=== PATIENT | male | born 1960 | race Caucasian/White ===

== ENCOUNTER 2019-11-18 04:29 | Outpatient (CLI) | payer BC, SELFPAY ==
[2019-11-18 18:08] LABS: SARS-CoV-2 RNA PCR Negative
== END 2019-11-18 04:30 | disposition home or self-care (01) ==
LOC: ANHCOVIDDT 04:29
PROVIDERS: PCP Family Medicine; Visit Provider Internal Medicine Gastroenterology
DX: Z01.812 Encounter for preprocedural laboratory examination (principal); Z11.59 Encounter for screening for other viral diseases
CPT/HCPCS: 87635; C9803; U0003

== ENCOUNTER 2019-11-21 00:13 | Day surgery (SDC) | payer BC, SELFPAY ==
[2019-11-15 13:22] VITALS: BMI 27.4
[2019-11-21 07:28] VITALS: BP 102/64; PULSE 58; RESP 15; TEMP 36.4; O2SAT 97
--- NOTE | 2019-11-21 07:36 | WPDANESEPPF ---
Anes - Initial Pre Proc Eval Procedure: Operation Date: 11/21/19 08:30 Proposed Procedures p Screening Colonoscopy - Bulmaro Amanda MD Date/Time: 11/21/19 07:36 Surgeon: Bulmaro Amanda MD Pre Op Diagnosis: neoplasm screening family hx colon polyps Patient Data Age: 59 Gender: M Height: 5 ft 9 in Weight: 83.1 kg Last Vital Signs Temp 36.4 C 11/21/19 07:28 Pulse 58 L 11/21/19 07:28 Resp 15 11/21/19 07:28 BP 102/64 11/21/19 07:28 Pulse Ox 97 11/21/19 07:28 Allergies Allergy/AdvReac Type Severity Reaction Status Date / Time Penicillins Allergy Unknown rash Verified 11/21/19 07:24 Home Medications Medication Instructions Recorded Confirmed Type adalimumab 40 mg/0.8 mL See Rx Instructions SUB-Q .COMPLEX 04/14/19 11/21/19 History subcutaneous syringe kit gabapentin 100 mg capsule See Rx Instructions .ROUTE .COMPLEX 04/14/19 11/21/19 History levothyroxine 25 mcg tablet 25 mcg PO DAILY #90 tablet 04/14/19 11/21/19 Rx pantoprazole 40 mg tablet,delayed 40 mg PO QAM #90 tablet 04/14/19 11/21/19 Rx release pravastatin 20 mg tablet 20 mg PO DAILY #90 tablet 04/14/19 11/21/19 Rx tramadol 50 mg tablet 50 mg PO Q6H PRN #60 tablet 07/03/19 11/21/19 Rx meloxicam 7.5 mg tablet 7.5 mg PO BID tablet 09/22/19 11/21/19 History triamcinolone acetonide 0.1 % 1 applic TOPICAL BID #30 gm 09/22/19 11/15/19 Rx topical cream tamsulosin 0.4 mg PO DAILY 11/21/19 11/21/19 History Patient hx anesthesia problems: none Family hx anesthesia problems: none PMFSH Past Medical History Medical History Adult hypothyroidism Back injury (~04/25/19) Other and unspecified hyperlipidemia Psoriatic arthritis Family History Family History Mother Dementia Social History Social History Smoking status: Current some day smoker Second hand tobacco smoke exposure: Yes Alcohol intake: current Drinks per week: 10 Anes - Eval Final PreProcedure Day of Procedure 11/21/19 07:36 Patient weight: overweight Heart: regular rate and rhythm Lungs: decreased breath sounds Airway: Mallampati scale class II Neurological: alert and oriented Last oral intake: >/= 8 hours ASA classification: III Emergent: no Anesthetic plan: proceed Anesthesia type and monitoring: general GIVS and standard monitoring Informed Consent: The patient's anesthetic plan and its attendant risks and benefits were discussed with the patient/family/POA. Questions were solicited and answers provided to the satisfaction of the patient/family/POA.
[2019-11-21] MEDS: LACTATED RINGERS 1,000 ML 150 ML IV CONT (07:39)
--- NOTE | 2019-11-21 07:48 | WPDGICN ---
Assessment and Plan Assessment and plan (1) Family history of colonic polyps: Code(s): Z83.71 - Family history of colonic polyps Status: Acute Assessment and Plan: Patient's sister has had colon polyps. Plan is for patient to have surveillance colonoscopy now and typically at 5 year intervals in the future. GI Consult Note Consult date/time: 11/21/19 07:48 HPI: Jesús Blackburn is a 59 year old male seen in evaluation at the request of Dr Danii Koo. Patient presents for colonoscopy. Family history is significant that her sister has had colon polyps. Patient states that his own weight appetite bowel movements are normal. He denies any blood in his stools. He does notice some regularity of bowel habits. In associated abdominal cramping. He denies any weight loss. Review of Systems Review of Systems: All systems reviewed & are unremarkable except as noted in HPI and below PMFSH Past Medical History Medical History Adult hypothyroidism Back injury (~04/25/19) Other and unspecified hyperlipidemia Psoriatic arthritis Family History Family History Mother Dementia Social History Social History Smoking status: Current some day smoker Second hand tobacco smoke exposure: Yes Alcohol intake: current Drinks per week: 10 Meds Home Medications and Allergies Home Medications Medication Instructions Recorded Confirmed Type adalimumab 40 mg/0.8 mL See Rx Instructions SUB-Q .COMPLEX 04/14/19 11/21/19 History subcutaneous syringe kit gabapentin 100 mg capsule See Rx Instructions .ROUTE .COMPLEX 04/14/19 11/21/19 History levothyroxine 25 mcg tablet 25 mcg PO DAILY #90 tablet 04/14/19 11/21/19 Rx pantoprazole 40 mg tablet,delayed 40 mg PO QAM #90 tablet 04/14/19 11/21/19 Rx release pravastatin 20 mg tablet 20 mg PO DAILY #90 tablet 04/14/19 11/21/19 Rx tramadol 50 mg tablet 50 mg PO Q6H PRN #60 tablet 07/03/19 11/21/19 Rx meloxicam 7.5 mg tablet 7.5 mg PO BID tablet 09/22/19 11/21/19 History triamcinolone acetonide 0.1 % 1 applic TOPICAL BID #30 gm 09/22/19 11/15/19 Rx topical cream tamsulosin 0.4 mg PO DAILY 11/21/19 11/21/19 History Allergies Allergy/AdvReac Type Severity Reaction Status Date / Time Penicillins Allergy Unknown rash Verified 11/21/19 07:24 Vital Signs Vital Signs - 24 hr 11/21/19 07:28 Temperature 36.4 C Pulse Rate 58 L Respiratory Rate 15 Blood Pressure 102/64 Pulse Oximetry 97 Exam Narrative: Exam Narrative: Physical exam reveals patient to be alert. Vital signs stable. HEENT exam unremarkable. Lungs are clear to auscultation and percussion. Heart is without murmur or extra sounds. Abdominal exam bowel sounds are present soft nontender no organomegaly. Digital external rectal exam normal.
[2019-11-21 08:43] VITALS: BP 100/64; PULSE 54; RESP 20; O2SAT 98
[2019-11-21 08:53] VITALS: BP 105/68; PULSE 51; RESP 18; O2SAT 95
[2019-11-21 09:03] VITALS: BP 109/69; PULSE 50; RESP 14; O2SAT 96
== END 2019-11-21 09:13 | disposition home or self-care (01) ==
PROVIDERS: PCP Family Medicine; Visit Provider Internal Medicine Gastroenterology
PROC: 0DJD8ZZ Inspection of Lower Intestinal Tract, Via Natural or Artificial Opening Endoscopic (ICD-10-PCS; CPT 45378; principal; 2019-11-21 08:30)
DX: Z12.11 Encounter for screening for malignant neoplasm of colon (principal); K63.5 Polyp of colon; Z83.71 Family history of colonic polyps; E03.9 Hypothyroidism, unspecified; L40.50 Arthropathic psoriasis, unspecified; F17.200 Nicotine dependence, unspecified, uncomplicated
CPT/HCPCS: 45385; 88305; J2704; J7120

== ENCOUNTER 2020-04-05 08:48 | Outpatient (CLI) | payer BC, SELFPAY ==
--- NOTE | 2020-04-05 08:50 | ECG_ITS ---
Measurements Intervals [place] Rate: 60 P: 52 SD: 165 QRS: 9 QRSD: 87 T: 25 QT: 376 QTc: 376 Interpretive Statements SINUS RHYTHM NORMAL ECG Electronically Signed On 04-05-2020 9:55:14 INSTALLATION AND REPAIR TECHNICIAN by Jeff Zuniga D.O.
== END 2020-04-05 08:49 | disposition home or self-care (01) ==
LOC: ANHCARD 08:50
PROVIDERS: PCP Family Medicine; Visit Provider Nurse Practitioner
DX: Z01.810 Encounter for preprocedural cardiovascular examination (principal)
CPT/HCPCS: 93005

== ENCOUNTER 2021-08-20 10:06 | Outpatient (CLI) | payer OTHER, BC, SELFPAY ==
--- NOTE | 2021-08-20 | ECG_ITS ---
Measurements Intervals [place] Rate: 60 P: 42 CT: 149 QRS: 9 QRSD: 110 T: 18 QT: 373 QTc: 373 Interpretive Statements SINUS RHYTHM NORMAL ECG COMPARED TO ECG 04/05/2020 09:19:00 NO SIGNIFICANT CHANGES Electronically Signed On 08-20-2021 13:41:40 CDT by Driss You M.D.
[2021-08-20 10:39] LABS: Hematocrit 43.7 % (42.0-52.0); Hemoglobin 14.3 g/dL (14.0-18.0); Immature Platelet Fraction Pct 16.5 % (0.9-11.2); Mean Corpuscular HGB Conc 32.7 g/dl (32-36); Mean Corpuscular Volume 88.6 fl (80-100); Mean Platelet Volume 11.6 fl (7.4-10.4); Platelet Count Result 125 k/mm3 (150-375); Red Blood Count 4.93 M/mm3 (4.6-6.20); Red Cell Distribution Width 15.9 % (11.5-14.5); White Blood Count 11.9 K/mm3 (4.5-10.0)
[2021-08-20 10:56] LABS: Alanine Aminotransferase 22 U/L (4-50); Albumin Level 4.6 g/dL (3.5-5.1); Alkaline Phosphatase 69 U/L (38-126); Anion Gap 8 mmol/L (8-16); Aspartate Amino Transferase 30 U/L (17-59); Bilirubin,Total 1.6 mg/dL (0.2-1.3); Blood Urea Nitrogen 20 mg/dL (9-20); Calcium 9.1 mg/dL (8.4-10.2); Carbon Dioxide 27 mmol/L (22-30); Chloride 104 mmol/L (98-107); Estimated Glomerular Filt Rate > 60; Glucose 113 mg/dL (65-110); Potassium 4.4 mmol/L (3.4-5.0); Sodium 139 mmol/L (137-145)
== END 2021-08-20 10:07 | disposition home or self-care (01) ==
PROVIDERS: PCP Family Medicine
DX: G56.03 Carpal tunnel syndrome, bilateral upper limbs (principal)
CPT/HCPCS: 36415; 80053; 85027; 85055; 93005

== ENCOUNTER 2022-04-23 08:14 | Outpatient (CLI) | payer MEDICARE, SELFPAY ==
--- NOTE | ~2022-04-23 | US_ITS ---
EXAMINATION: US aorta [facility] DATE: 04/23/2022 14:37 RECEPTIONIST TELEPHONE OPERATOR INDICATION: History of nicotine dependence TECHNIQUE: Grayscale, color Doppler, and pulsed Doppler images of the aorta and common iliac arteries were obtained. COMPARISON: None. FINDINGS: The proximal aorta measures 3 cm greatest sagittal dimension. The mid aorta measures 2.5 cm greatest sagittal dimension. The distal aorta measures 2.6 cm greatest sagittal dimension. The right common in ternal iliac artery measures 1.4 cm. The left common iliac artery measures 1.5 cm. IMPRESSION: 1. Mild aneurysmal dilation of the proximal abdominal aorta measuring 3 cm. Reviewed, dictated and finalized at location A. PTIONIST TELEPHONE OPERATOR
== END 2022-04-23 08:15 | disposition home or self-care (01) ==
PROVIDERS: PCP Family Medicine; Visit Provider Nurse Practitioner
DX: Z87.891 Personal history of nicotine dependence (principal)
CPT/HCPCS: 76706

== ENCOUNTER → 2023-02-08 13:51 | Outpatient (CLI) | payer MEDICARE, SELFPAY ==
--- NOTE | ~2023-02-08 | MR_ITS ---
EXAMINATION: MR shoulder LT wo con DATE: 02/08/2023 14:39 INDICATION: Left shoulder pain TECHNIQUE: Magnetic resonance imaging (MRI) of the left shoulder was performed without intravenous co ntrast. Sequences included axial PD-weighted FS FSE, coronal oblique PD-weighted FS FSE, coronal obli que T2-weighted FS FSE, sagittal PD-weighted FS FSE, and sagittal T1-weighted SE. COMPARISON: None. FINDINGS: Coracoacromial arch: The acromion undersurface is curved in morphology (type II). Small subacromial spur at the acromial i nsertion of the normal coracoacromial ligament. Moderate acromioclavicular osteoarthritis but without inferiorly directed osteophytes. Rotator cuff: Mild supraspinatus and infraspinatus tendinopathy without tear. The teres minor tendon is normal. Mil d subscapularis tendinopathy without tear. Normal rotator cuff muscle bulk and signal. Biceps tendon, glenoid labrum and glenohumeral cartilage: Moderate tendinopathy and longitudinal split tearing of the long head of the biceps tendon centered a t the junction of the intra-articular and extra articular portions of the tendon. There is a tear of the 11:00-12:00 position of the superior glenoid labrum. Additional tear at the 9:30-6:00 position of the posterior inferior glenoid labrum. Mild glenohumeral osteoarthritis with posterior inferior pred ominant nonuniform joint space narrowing with mild partial-thickness cartilage loss. Fluid: Physiologic amount of fluid in the glenohumeral joint and biceps tendon sheath. No loose osteochondr al bodies. No abnormal fluid in the subacromial/subdeltoid bursa to suggest bursitis. Bones: Bone alignment is normal. No fracture or pathologic marrow replacing process. Mild hypertrophic and c ystic change along the superior facet of the greater tuberosity and lateral margin of the lesser tube rosity likely related to chronic rotator cuff disease. IMPRESSION: 1. Mild left glenohumeral osteoarthritis with tear at the superior and posterior inferior glenoid lab rum. 2. Mild subscapularis, supraspinatus and infraspinatus tendinopathy without tear. 3. Moderate tendinopathy and partial split tear at the junction of the internal extra articular porti ons of the long head biceps tendon. 4. Moderate acromioclavicular osteoarthritis. Reviewed, dictated and finalized at location A. IMPRESSION: 1. Mild left glenohumeral osteoarthritis with tear at the superior and posterio r inferior glenoid labrum. 2. Mild subscapularis, supraspinatus and infraspinatus tendinopathy without tea r. 3. Moderate tendinopathy and partial split tear at the junction of the internal extra articular portions of the long head biceps tendon. 4. Moderate acromioclavicular osteoarthritis.
== END ==
PROVIDERS: PCP Specialist; Visit Provider Family Medicine
DX: M19.012 Primary osteoarthritis, left shoulder (principal)
CPT/HCPCS: 73221

== ENCOUNTER 2023-04-03 08:19 | Outpatient (CLI) | payer MEDICARE, SELFPAY ==
[2023-04-03 08:47] LABS: Immature Platelet Fraction Pct 17.2 % (0.9-11.2); Mean Platelet Volume 12.3 fl (7.4-10.4); Platelet Count Result 86 k/mm3 (150-375)
== END 2023-04-03 08:20 | disposition home or self-care (01) ==
PROVIDERS: PCP Specialist; Referring Provider Anesthesiology; Visit Provider Otolaryngology
DX: Z01.818 Encounter for other preprocedural examination (principal); D69.6 Thrombocytopenia, unspecified; J34.2 Deviated nasal septum
CPT/HCPCS: 36415; 85049; 85055; 86850; 86900; 86901

== ENCOUNTER 2023-04-06 00:25 | Day surgery (SDC) | payer MEDICARE, SELFPAY ==
--- NOTE | 2023-04-02 10:28 | PC.NURSE ---
Report to the Outpatient Waiting Room, entrance under the green pavilion located off [facility], at time 1230 on date 04/06/23. Planned Procedure Time: 1230. Time changes happen often and if your time is changed the preop area will call you the afternoon before. - You and your visitor will be asked to self-screen and do not enter if you have any COVID symptoms. - A mask is optional within the hospital at this time. Patients may have clear liquids (water, carbonated beverages, clear teas, apple juice) until 3 hours prior to surgery with a maximum of 20 ounces. 1130 - No food from midnight until time of surgery - Infants may have breast milk until 4 hours before surgery, formula 6 hours prior to surgery. - Children will be allowed to drink immediately following surgery. If applicable, please bring a bottle or sippy cup to assist with drinking. Juice, water, soda, and popsicles are readily available. For infants on formula, please bring formula the day of surgery. Pacifiers are allowed. Take the following medications with a SIP of water the morning of surgery: tramadol, gabapentin DO NOT STOP ANY OF YOUR OTHER PRESCRIPTION MEDICATIONS PRIOR TO SURGERY ?EXCEPT THE FOLLOWING Medications to discontinue per physician vitamins & supplements, pantoprazole, pravastatin, tamsulosin, meloxicam Date to take last dose 04/03/23- vitamins & supplements, 04/05/23- pantoprazole, pravastatin, tamsulosin ASK DR. REYEZ ABOUT STOPPING MELOXICAM Please no make-up, nail luxembourger, hairspray, perfume, deodorant, or body powder the day of surgery. No jewelry (including any body piercings) or valuables the day of surgery, leave them at home. Please take a shower or bath the night before, or the morning of, surgery with an antibacterial soap. Wear comfortable, loose fitting clothing. Children are encouraged to wear pajamas. - Jewelry must be removed prior to entering the operating room. Rings and piercings that are not removed may be cut off. - The hospital will not accept responsibility for valuables. - Please leave all valuables, including medications, at home the day of surgery. If you are going home after surgery, a licensed rear load truck driver must drive you home. - NO public transportation without another adult if you receive anesthesia. - We recommend that an adult stay with you for 24 hours following discharge. - We also recommend that you do not drive, make important decision, drink alcoholic beverages, or take any drugs that were not prescribed by your health care provider for at least 24 hours after your discharge time. For Pediatric surgeries, we recommend two adults accompany the child home. Follow any additional instructions given to you from your surgeon. If you or anyone in your household have experienced Covid symptoms in the past week, please notify your surgeon or the nurse liaison at the phone number below for possible testing. Telephone instructions given to PATIENT- Jesús Blackburn and asked if any additional questions and then verbalized understanding. Patient advised to call surgeon office or pre surgery nurse liaison [phone] if any additional questions.
[2023-04-02 10:42] VITALS: BMI 29.5
--- NOTE | 2023-04-02 10:52 | PC.NURSE ---
Spoke to patient to notify him anesthesiologist would like for him to have blood drawn prior to surgery to check platelet count. Patient stated he would come in either today or tomorrow to have blood drawn completed.
--- NOTE | 2023-04-05 16:54 | PM.IMHP ---
H&P: HPI History of Present Illness Date/Time: 04/05/23 16:54 Chief Complaint: Thrombocytopenia septal deviation turbinate hypertrophy Narrative: planned procedure Review of Systems Review of Systems: All systems reviewed & are unremarkable except as noted in HPI and below [facility] Past Medical History Medical History AAA (abdominal aortic aneurysm) 3cm - u/s 04/23/22 Adult hypothyroidism Benign prostatic hyperplasia Bilateral tinnitus Deviated septum Family history of colonic polyps GERD without esophagitis Herniated disc, cervical 2012 Hx of Lyme disease (~08/2020) Other and unspecified hyperlipidemia Pain of back and right lower extremity Peyronie's disease Follows with urology - Dr Pastrana Psoriatic arthritis Follows with Rheumatology at [facility] Septic joint of right knee joint 06/2018 Torn ligament R hip 2012 Vitamin D deficiency Surgical History Surgical History H/O discectomy (~05/2014) C3-4 H/O left wrist surgery H/O spinal fusion (~2004) C3-4, C4-5 History of arthroscopy of knee Right knee x3 History of arthroscopy of right shoulder x4 S/p bilateral carpal tunnel release Family History Family History Mother Dementia Social History Social History Social History: , retired tractor trailer truck driver. Smoking packs per day: 0.5 Smoking cigarettes per day: 10.0 Years smoked: 20 Smoking pack-years: 10.00 Smoking status: Former smoker Tobacco type: cigarettes Second hand tobacco smoke exposure: Yes Alcohol intake: current Drinks per week: 45 Alcohol use details: drinks beer Substance use: never Lack of Transportation: No Lack of Food: Never True Current Housing: I Have Housing Concerned About Future Housing: No Difficulty Paying Gas/Electric Bills: No Difficulty Paying for Meds: No Currently Unemployed: No Education: Bachelor's Degree Difficulty w/ Childcare or Family Care: No Occupation/Education: occupation Additional occupation/education comments: retired tractor trailer truck driver Gender identity (if verbalized by the patient): Male Meds Home Medications and Allergies Home Medications Medication Instructions Recorded Confirmed Type cholecalciferol (vitamin D3) 50 500 mcg PO WEEKLY 04/29/20 04/02/23 History mcg (2,000 unit) capsule pravastatin 20 mg tablet 20 mg PO DAILY #90 tabs 12/17/22 04/02/23 Rx golimumab 12.5 mg/mL intravenous 12.5 mg IV .every 2 months 01/19/23 04/02/23 History solution (Simponi ARIA) pantoprazole 40 mg tablet,delayed 40 mg PO DAILY #90 tabs 03/01/23 04/02/23 Rx release meloxicam 7.5 mg tablet 7.5 mg PO BID #180 tabs 03/23/23 04/02/23 Rx tramadol 50 mg tablet 50 mg PO BID PRN pain #60 tabs 03/29/23 04/02/23 Rx gabapentin 300 mg capsule 300 mg PO TID 04/02/23 04/02/23 History (Neurontin) tamsulosin 0.4 mg capsule 0.4 mg PO HS 04/02/23 04/02/23 History tramadol 50 mg tablet 50 mg PO BID PRN Pain 04/02/23 04/02/23 History [id number]-kcex-hayws-oreg-capryl 2,000 mg PO DAILY 04/02/23 04/02/23 History Allergies Allergy/AdvReac Type Severity Reaction Status Date / Time Penicillins Allergy Unknown rash Verified 04/02/23 10:11 methotrexate AdvReac Severe Other Verified 04/02/23 10:11 Exam Narrative: septal deviation turbinate hypertrophy Assessment and Plan Assessment and plan (1) Hypertrophy of both inferior nasal turbinates: Code(s): J34.3 - Hypertrophy of nasal turbinates Status: Acute Assessment and Plan: plan OR endoscopic assisted septoplasty possible turbinate reduction, absolutely turbinate outfracture. Risks were discussed including bleeding patient has thrombocytopenia may need to give platelets prior to surgery. Other risks septal
--- NOTE | 2023-04-06 07:38 | WPDHPUPDATE1 ---
History and Physical Update Update Date/Time: 04/06/23 07:38 History and Physical has been reviewed, including an updated exam of the patient. There are NO changes in the patient's condition. Risks, benefits, and alternatives have been discussed and questions answered. Patient agrees to proceed with procedure.
[2023-04-06 12:54] VITALS: BP 102/69; PULSE 66; RESP 18; TEMP 36.4; O2SAT 97
[2023-04-06] MEDS: LACTATED RINGERS 1,000 ML 30 ML IV CONT (13:20)
[2023-04-06] MEDS: ACETAMINOPHEN 500 MG TABLET 1000 MG PO (13:20)
--- NOTE | 2023-04-06 15:34 | SUR.PREOP ---
1530-confirmed delay w/OR room staff-states ~1 additional hour. Pt updated and call placed to w/update.
--- NOTE | 2023-04-06 15:52 | SUR.PREOP ---
1534 DR MORRIS IN TO SPEAK WITH PT ABOUT RESCHEDULING HIS SURGERY. SPOKE WITH PTS
--- NOTE | 2023-04-06 16:13 | SUR.PREOP ---
1400 PT RESTING, WARM BLANKET GIVEN, DENIED NEEDS
== END 2023-04-06 16:12 | disposition home or self-care (01) ==
PROVIDERS: PCP Family Medicine; Visit Provider Otolaryngology
PROC: (CPT 30520; principal; 2023-04-06 14:30)
DX: J32.9 Chronic sinusitis, unspecified (principal); J34.2 Deviated nasal septum; Z53.9 Procedure and treatment not carried out, unspecified reason
CPT/HCPCS: 36415; 85049; 85055; 86850; 86900; 86901; 99213; A9270; G0463; J7120

== ENCOUNTER 2023-10-28 09:52 | Outpatient (CLI) | payer MEDICARE, SELFPAY ==
[2023-10-28 19:56] LABS: Hematocrit 39.3 % (42.0-52.0); Mean Corpuscular HGB Conc 30.5 g/dl (32-36); Mean Corpuscular Hemoglobin 26.8 pg (26-34); Mean Corpuscular Volume 87.9 fl (80-100); Platelet Count Result 175 k/mm3 (150-375); Red Blood Count 4.47 M/mm3 (4.6-6.20); Red Cell Distribution Width 16.5 % (11.5-14.5)
[2023-10-28 23:47] LABS: Alanine Aminotransferase 15 U/L (6-50); Albumin Level 4.2 g/dL (3.5-5.1); Alkaline Phosphatase 101 U/L (38-126); Anion Gap 5 mmol/L (4-12); Aspartate Amino Transferase 30 U/L (17-59); Bilirubin,Total 0.8 mg/dL (0.2-1.3); Blood Urea Nitrogen 22 mg/dL (9-20); Calcium 9.5 mg/dL (8.4-10.2); Carbon Dioxide 30 mmol/L (22-30); Chloride 104 mmol/L (98-107); Cholesterol 120 mg/dL (0-200); Estimated Glomerular Filt Rate > 60; Glucose 111 mg/dL (65-110); HDL Direct 28 mg/dL; Potassium 4.3 mmol/L (3.4-5.0); Sodium 139 mmol/L (137-145); Triglycerides 70 mg/dL (<150)
[2023-10-28 23:58] LABS: LDL Cholesterol Direct 76 mg/dL
[2023-10-29 00:39] LABS: Prostate Specific Antigen 0.4 ng/mL (< OR = 4.0)
[2023-10-29 10:52] LABS: Hemoglobin A1C 5.3 % (<5.7)
[2023-10-29 13:25] LABS: Vitamin D 25 Hydroxy 54.3 ng/mL
== END 2023-10-28 09:53 | disposition home or self-care (01) ==
LOC: ANHGOSHLAB 09:53
PROVIDERS: PCP Family Medicine; Visit Provider Nurse Practitioner
DX: E78.5 Hyperlipidemia, unspecified (principal); Z12.5 Encounter for screening for malignant neoplasm of prostate; E55.9 Vitamin D deficiency, unspecified; L40.50 Arthropathic psoriasis, unspecified
CPT/HCPCS: 36415; 80053; 80061; 82306; 83036; 84153; 84443; 85027; G0103

== ENCOUNTER 2023-11-30 12:49 | Outpatient (CLI) | payer MEDICARE, SELFPAY ==
--- NOTE | ~2023-11-30 | US_ITS ---
EXAMINATION: US aorta DATE: 11/30/2023 13:21 INDICATION: Abdominal aortic aneurysm without rupture TECHNIQUE: Grayscale, color Doppler, and pulsed Doppler images of the aorta and common iliac arteries were obtained. COMPARISON: None. FINDINGS: The proximal aorta measures 2.6. The mid aorta measures 2.6 cm. The distal aorta measures 1.9 cm. The right common iliac artery measures 1.4 cm. The left common iliac artery measures 1.2 cm. IMPRESSION: 1. Normal caliber abdominal aorta. Reviewed, dictated and finalized at location A.
== END 2023-11-30 12:50 | disposition home or self-care (01) ==
LOC: ANHIMG 12:51
PROVIDERS: PCP Family Medicine; Visit Provider Nurse Practitioner
DX: I71.40 Abdominal aortic aneurysm, without rupture, unspecified (principal)
CPT/HCPCS: 76775

== ENCOUNTER 2024-11-01 11:23 | Outpatient (CLI) | payer OTHER, SELFPAY ==
--- NOTE | 2024-11-01 12:08 | ECG_ITS ---
Test Date: 2024-11-01 12:20:[address] [place] [address] Rate: 63 P: 14 [place]: 172 QRS: -1 QRSD: 91 T: 11 QT: 382 QTc: 392 Interpretive Statements SINUS RHYTHM BASELINE ARTIFACT- I, II, III NORMAL ECG No previous ECG available for comparison Electronically Signed On 11-01-2024 12:50:15 CDT by Jeff Zuniga D.O.
[2024-11-01 12:12] LABS: Add Urine Microscopic? NO; Appearance Urine Clear (Clear); Bilirubin Urine Negative (Negative); Blood Urine Negative (Negative); Color Urine Yellow (Yellow); Glucose Urine UA Negative (Negative); Ketones Urine Negative (Negative); Leukocyte Esterase Ur Negative LEU/UL (Negative); Nitrate Urine Negative (Negative); Protein Urine Negative (Negative); Specific Grav Ur 1.018 (1.001-1.035); pH Urine 5.5 (5.0-9.0)
[2024-11-01 12:13] LABS: Basophils Percent Auto 0.3 % (0.2-1.2); Eosinophils Absolute Auto 0.7 K/mm3 (0-0.3); Eosinophils Percent Auto 10.7 % (0-4.4); Hematocrit 43.4 % (42.0-52.0); Hemoglobin 13.9 g/dL (14.0-18.0); Immature Granulocyte Absolute 0.04 K/mm3 (0.00-0.031); Immature Granulocyte Percent A 0.6 % (0-0.5); Immature Platelet Fraction Pct 15.9 % (0.9-11.2); Lymphocytes Absolute Auto 1.28 K/mm3 (0.9-3.2); Lymphocytes Percent Auto 18.6 % (18.3-44.2); Mean Corpuscular Hemoglobin 29.2 pg (26-34); Mean Corpuscular Volume 91.2 fl (80-100); Mean Platelet Volume 12.2 fl (7.4-10.4); Monocytes Absolute Auto 0.4 K/mm3 (0.1-0.6); Monocytes Percent Auto 5.4 % (2.6-8.5); Neutrophils Absolute Auto 4.4 K/mm3 (1.3-6.7); Neutrophils Percent Auto 64.4 % (45.5-73.1); Platelet Count Result 90 k/mm3 (150-375); Red Blood Count 4.76 M/mm3 (4.6-6.20); Red Cell Distribution Width 15.7 % (11.5-14.5); White Blood Count 6.9 K/mm3 (4.5-10.0)
[2024-11-01 12:29] LABS: INR 1.1; Partial Thromboplastin Time 25.1 Seconds (22.3-36.8)
[2024-11-01 13:24] LABS: Erythrocyte Sedimentation Rate 4 mm/hr (0-20)
[2024-11-01 13:30] LABS: HIV 1/2 Ab P24 Ag Result Negative (Negative)
[2024-11-01 13:37] LABS: Vitamin D 25 Hydroxy 58.1 ng/mL
--- OUTSIDE RECORDS SUMMARY | 2024-11-01 13:50 | XMS_ITS | Referral Summary ---
Author Organization [facility] Address [address] [place] [address] Care Team Providers Care Dam Worker Name Role Phone Tali Padgett MD Primary Care Provider Allergies Active Allergy Reactions Criticality Noted Date Comments Methotrexate Other (See comments) Reaction: abnormal liver enzymes, Penicillins Rash Reaction: rash, , Medications tamsulosin (FLOMAX) 0.4 mg extended release capsuleIndicatio ns:benign prostatic hyperplasia with lower urinary tract sx Take 1 capsule (0.4 mg total) by mouth nightly Active gabapentin (NEURONTIN) 300 mg capsuleIndicatio ns:Neuropathic Pain Take 1 capsule (300 mg total) by mouth 3 (three) times a day 1 Active calcium carbonate-mag hydroxid 1,000-200 mg tablet,chewableI ndications:Heart burn,gastroesoph ageal reflux disease Take 1 tablet/capsule by mouth as needed Active clobetasoL (CLOBEX) 0.05 % shampooIndicatio ns:Scalp Psoriasis Apply 1 Application topically as needed [address] (PROTONIX) 20 mg EC tabletIndication s:Treatment of Non-Bleeding Gastric Disorder Take 1 tablet (20 mg total) by mouth every morning Active pravastatin (PRAVACHOL) 20 mg tabletIndication s:hyperlipidemia Take 1 tablet (20 mg total) by mouth every morning 3 Active rOPINIRole (REQUIP) 1 mg tabletIndication s:Restless Legs Syndrome Take 1 tablet (1 mg total) by mouth 2 (two) times a day 4 Active cholecalciferol, vitamin D3, (VITAMIN D3 ORAL)Indications :supplement Take 1 tablet/capsule by mouth every morning Active CALCIUM ORALIndications: supplement Take 1 tablet/capsule by mouth every morning Active hydrocortisone 2.5 % creamIndications :Skin Inflammation,ski n rash Apply topically 2 (two) times a day Twice a day to psoriatic plaques. DO NOT APPLY TO RIGHT KNEE SURGICAL INCISION. 4 Active senna-docusate (PERICOLACE) 8.6-50 mg Take 2 tablets by mouth 2 (two) times a day May increase to 4 tablets twice daily if needed. HOLD medication for diarrhea. 80 tablet 1 4 Active cyclobenzaprine (FLEXERIL) 10 mg tablet Take 1 tablet (10 mg total) by mouth 3 (three) times a day as needed for muscle spasms 30 tablet 4 Active traMADoL (ULTRAM) 50 mg tabletIndication s:Post-operative pain Take 1 tablet (50 mg total) by mouth every 6 (six) hours as needed for pain 28 tablet 1 4 Active meloxicam (MOBIC) 15 mg tablet Take 1 tablet (15 mg total) by mouth daily 30 tablet 1 4 Active sulfaSALAzine (AZULFIDINE) 500 mg tablet Take 1 tablet (500 mg total) by mouth 2 (two) times a day 60 tablet 1 4 Active Additional Information Patient not taking.Reported on 01/17/[address] (PROTONIX) 40 mg EC tablet Take 1 tablet (40 mg total) by mouth daily 4 Active sulfamethoxazole -trimethoprim (BACTRIM DS) 800-160 mg per tablet Take 1 tablet by mouth 2 (two) times a day Active predniSONE (DELTASONE) 10 mg tablet Take 1 tablet (10 mg) by mouth daily Active neomycin-polymyx in B-dexAMETHasone (MAXITROL) 3.5 mg/g-10,000 unit/g-0.1 % ointment LOCATION: BOTH EYES. APPLY 1 DAB IN EACH EYE AT 4 TIMES A DAY FOR 5 DAYS. Active clotrimazole-bet amethasone (LOTRISONE) cream Apply topically 2 (two) times a day Active golimumab (SIMPONI ARIA) 12.5 mg/mL solutionIndicati ons:Rheumatoid Arthritis Infuse 2 mg/kg into a venous catheter Active leflunomide (ARAVA) 10 mg tablet Take 1 tablet (10 mg total) by mouth daily 4 Active HYDROcodone-acet aminophen (NORCO) 7.5-325 mg per tablet Take 1 tablet by mouth every 8 (eight) hours as needed 4 Active naloxone (NARCAN) 4 mg/actuation spray,non-aeroso l USE 1 SPRAY INTO ONE NOSTRIL NEEDED. CALL 911. REPEAT AFTER 2-3 MIN IF NO OR MINIMAL RESPONSE 4 Active Active Problems Problem Noted Date Diagnosed Date Spinal cord disease 12/06/2023 History of thrombocytopenia 09/08/2023 At risk for obstructive sleep apnea 09/08/2023 Infection of knee 09/07/2023 DDD (degenerative disc disease), lumbar 11/09/19 20 Assessment & Plan (11/09/2019 12:59 PM CDT): Epidural steroid injections x 2 in July with moderate relief. 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 Encourage patient to take gabapentin regularly rather than prn with increased dose to 200 mg twice daily. Advice given about 2019 novel coronavirus by pasquale aguila 11/09/2019 Assessment & Plan (11/09/2019 1:10 PM CDT): The full impact of autoimmune diseases and immunomodulatory medications on susceptibility and complications of coronavirus disease is not yet studied. Because we have cat scan technologist with this new virus we do not currently have absolute answers. Currently we are not recommending that patients stop their medications during this period of uncertainty. We do not want to risk letting your disease flare. The usual CDC precautions for minimizing coronavirus risk are appropriate. Frequently wash your hands with soap and water for at least 20 seconds. When soap and running water are unavailable, use an alcohol-based hand rub with at least 60% alcohol. Always wash hands that are visibly soiled. Avoid touching your eyes, nose, or mouth with unwashed hands. Avoid close contact with people who are sick and maintain social distancing. The CDC has recommended that ALL persons wear a fabric mask when out in public. Obviously this is a fast-moving issue and the CDC is providing regular updates as the course and extent of the epidemic is monitored. You may keep up to date at the CDC website: www.coronavirus.gov You may also find more information relevant to your questions at the [employer] webpage: arthritis.org. Click on the Coronavirus banner. It is important that you continue to adhere to the pykb-pa-rtax orders for the time being, especially in view of your potentially immunocompromised status. Feel free to reach out to us if you have additional questions after you review this information. You may review the current [employer] Covid-19 clinical guidance for Patients with Rheumatic Diseases if you copy and paste the link below into your web browser: [email or web address] Of course, Humira should be placed on hold in the event you were to become ill. Allergic contact dermatitis due to plants, excep t food 12/06/2018 Assessment & Plan (12/06/2018 12:17 PM CDT): Medrol dosepack ordered for management contact dermatitis. History of septic arthritis 09/14/2018 Assessment & Plan (09/14/2018 4:54 PM CDT): Arthroscopic R knee surgery 10/2017 with subsequent persistent pain. Injection (?viscotherapy) 07/05/2018 after which patient developed septic arthritis (staph) R knee. Surgical drainage performed followed by 4 weeks parenteral antibiotic ([facility] [place]). He will have records sent for our review and files. Status post arthroscopic surgery of right knee 0 01/11/2018 Hypothyroidism due to acquired atrophy of thyroi d 01/11/2018 Assessment & Plan (11/09/2019 1:11 PM CDT): Lab Results Component Value Date TSH 2.41 01/05/[address] Koo. Assessment & Plan (01/11/2018 4:37 PM CDT): On Tirosint [address] Agustin. Primary osteoarthritis involving multiple joints 06/28/2017 Assessment & Plan (06/28/2017 3:13 PM TIRE BLADDER MAKER): Discussed chronic pain management concerns in the setting of documented progressive osteoarthritis R hip (monitored by orthopedic surgeon). Discussed concerns re: opioid use for chronic pain. Discussed role of non-analgesic pain management approaches including gabapentin ( Neurontin) and duloxetine ( Cymbalta). Patient interested in trying gabapentin to reduce need for hydrocodone and tramadol if possible (he takes these often at end of work day ([employer]) for relief of pain. Steroid injections for hip have been tried (lasting 2-3 months). He is aware of eventual need for total hip replacement. Encounter for long-term (current) use of medicat ions 01/05/2017 Assessment & Plan (04/21/2023 4:02 PM TIRE BLADDER MAKER): Long-term use of high-risk medication requiring regular monitoring. Labs ordered, no s/s of med tox or infection. Encouraged to work with PCP to make sure all recommended cancer screens and vaccinations are complete. Avoid live-vaccines unless reviewed with jukebox routeman first. Assessment & Plan (11/09/2019 1:11 PM CDT): Lab Results Component Value Date WBC 8.4 04/14/2019 HGB 14.1 04/14/2019 HCT 43.2 04/14/2019 MCV 88.7 04/14/2019 LABPLAT 95 (L) 04/14/2019 Chemistry Lab Results Component Value Date SODIUM 140 04/14/2019 POTASSIUM 4.3 04/14/2019 CHLORIDE 106 04/14/2019 CO2 25 04/14/2019 ANIONGAP 11 05/21/2014 BUNSER 22 04/14/2019 CREATININE 0.91 04/14/2019 GLUCOSE 100 (H) 04/14/2019 CALCIUM 9.5 04/14/2019 BILITOT 1.2 04/14/2019 PROTEIN 6.7 04/14/2019 ALBUMIN 4.4 04/14/2019 ALKPHOS 88 04/14/2019 AST 14 04/14/2019 ALT 19 04/14/2019 Lab Results Component Value Date SEDRATE 2 04/14/2019 Lab Results Component Value Date CRP 2.1 04/14/2019 Patient on medications requiring periodic lab monitoring for drug safety. Update lab as per orders written. Assessment & Plan (04/15/2019 11:14 PM TIRE BLADDER MAKER): Patient on immunosuppressive medications requiring periodic lab monitoring for drug safety. Assessment & Plan (12/06/2018 12:17 PM CDT): Patient on immunosuppressive medications requiring periodic lab monitoring for drug safety. Update lab as per orders written. Assessment & Plan (09/14/2018 4:49 PM CDT): Patient on immunosuppressive medications requiring periodic lab monitoring for drug safety. Update lab as per orders written. Assessment & Plan (01/11/2018 4:33 PM CDT): Patient on immunosuppressive medications requiring periodic lab monitoring for drug safety. Update lab as per orders written. Assessment & Plan (06/28/2017 3:10 PM TIRE BLADDER MAKER): Patient on immunosuppressive medications requiring periodic lab monitoring for drug safety. Update lab as per orders written. Assessment & Plan (01/05/2017 11:56 AM CDT): Patient on immunosuppressive medications requiring periodic lab monitoring for drug safety. Update lab as per orders written. Overweight with body mass index (BMI) 25.0-29.9 01/05/2017 Assessment & Plan (12/06/2018 12:17 PM CDT): BMI satisfactory. A healthy diet and routine exercise regimen are bernardo to weight management. Assessment & Plan (09/14/2018 4:44 PM CDT): An optimal BMI (body mass index) is between 20 and 25. Encourage weight loss. Each pound of weight lost unloads 3-4 pounds per square inch pressure from weight bearing joints. Diet and exercise are the keys to weight management. Assessment & Plan (01/11/2018 4:33 PM CDT): Weight loss (after surgery) noted. An optimal BMI (body mass index) is between 20 and 25. Encourage weight loss. Each pound of weight lost unloads 3-4 pounds per square inch pressure from weight bearing joints. Diet and exercise are the keys to weight management. Assessment & Plan (06/28/2017 3:09 PM TIRE BLADDER MAKER): An optimal BMI (body mass index) is between 20 and 25. Encourage weight loss. Each pound of weight lost unloads 3-4 pounds per square inch pressure from weight bearing joints. Diet and exercise are the keys to weight management. Cervicalgia 09/14/2016 Pain in shoulder 06/24/2016 Polyarticular psoriatic arthritis 03/09/2016 Overview (08/27/2016): Psoriatic arthritis Assessment & Plan (05/26/2023 6:49 PM TIRE BLADDER MAKER): Worsening symptoms, joint and skin off meds due to joint infection. Long discussion that we will need to await Dr. Romo's (ID) recommendation on if the infection is cleared prior to starting back on Simponi. He has meloxicam for bid use and prn norco for now. He will follow up with Dr. Real in 3 months and I will speak with Dr. Romo on 06/03/23 after his visit to discussion options. Assessment & Plan (04/21/2023 4:01 PM TIRE BLADDER MAKER): Stable/improved on simponi IV. Continue same. Labs today. Follow up in 6 months and prn. Stressed importance of dermatology follow up given his history of AKs/pre-cancers. Assessment & Plan (11/09/2019 1:13 PM CDT): Psoriatic arthritis stable on current med regimen. He notes minimal plaque psoriasis though complains of increased hip pain. He had steroid injection (11/06)/ R hip (osteoarthritis); ultimately heading toward hip replacement. He is receiving hyaluronate injections R knee. He tolerates Humira without side effects. His daughter (RN) is recovered from COVID. Patient self-quarantined x 2 week as he was caring for daughter's child for 1 week but fortunately did not become ill. Will continue current Humira regimen. Assessment & Plan (04/15/2019 11:14 PM TIRE BLADDER MAKER): Psoriatic arthritis follow up with continued clinically stable on Humira regimen. No side effects reported. Continue present regimen Assessment & Plan (12/06/2018 12:19 PM CDT): Clinically stable on present med regimen. Continue same. No med side effects reported. Update lab as per orders. Assessment & Plan (09/14/2018 4:48 PM CDT): Remains on Humira every 14 day. Tolerates same without side effects. Interrupted Humira for recent hospitalization [facility] with staph infection R knee following a knee injection. He received 4 week course IV antibiotic July. No recurrent fever, pain, swelling. He has resumed Humira x 2 injections now (second injection last PM). He will have copies of discharge summary and ortho notes sent for our files. Assessment & Plan (01/11/2018 4:34 PM CDT): Psoriatic arthritis clinically stable on Humira regimen. Interrupted therapy during recent knee R knee arthroscopic surgery. Has resumed since with stable course. Skin and joints well controlled. Assessment & Plan (06/28/2017 3:15 PM TIRE BLADDER MAKER): Psoriatic arthritis clinically stable on adalimumab ( Humira) regimen. No acute joint swelling, heat or redness. Psoriasis (skin) well controlled. Continue same. DDD (degenerative disc disease), cervical 2013 Overview (11/09/2019): XR Spine Cervical Complete 4 or 5 Views Status: Final result Study Result JACE KHAN M.D. F JOSE DU M.D. *FINAL REPORT* The radiology attending physician has personally reviewed this study, and has reviewed and/or edited this written report and agrees with it. ACC# Date Time Exam [id number] Sep 16, 2016 11:19:00 [id number] Spine Cervical 4 or 5 vws ACC# Date Time Exam [id number] Sep 16, 2016 11:19:00 [id number] Spine Cervical 4 or 5 vws EXAMINATION: Cervical spine 4 views HISTORY: Cervical Spondylosis FINDINGS: Four views of the cervical spine are compared to 06/12/2015. There is unchanged healed anterior discectomy and instrumented cervical spinal fusion at C4-C6. The C3-C4 disc prosthesis extends anterior to the inferior endplate of C3 unchanged since the prior exam but is new since the initial postoperative radiographs. Osteolysis is present about the disc prosthesis. There is no motion of the fused segments with flexion or extension. There is preservation of motion at C3-C4. There is unchanged mild degenerative disc disease at C2-C3 and C6-C7. There is no prevertebral soft tissue swelling or acute fracture. IMPRESSION: 1. Unchanged C3-C4 disc prosthesis with unchanged anterior displacement of the prosthesis relative to the initial postoperative images and osteolysis around the prosthesis. 2. Unchanged anterior cervical discectomy and instrumented fusion at C4-C6 with no motion of the fused segments. Requested By: VENANCIO LAYNE M.D. Dictated By: JOSE DU M.D. on Sep 16 2016 11:45A This document has been electronically signed by: JACE KHAN M.D. F on Sep 16 2016 12:14P [id number] Result History XR Spine Cervical Complete 4 or 5 Views (Order #[id number]) on 09/16/2016 - Order Result History Report Assessment & Plan (11/09/2019 1:14 PM CDT): XR Spine Cervical Complete 4 or 5 Views Status: Final result Study Result JACE KHAN M.D. F JOSE DU M.D.*FINAL REPORT* The radiology attending physician has personally reviewed this study, and has reviewed and/or edited this written report and agrees with it. ACC# Date Time Exam [id number] Sep 16, 2016 11:19:00 [id number] Spine Cervical 4 or 5 vws ACC# Date Time Exam [id number] Sep 16, 2016 11:19:00 [id number] Spine Cervical 4 or 5 vws EXAMINATION: Cervical spine 4 views HISTORY: Cervical Spondylosis FINDINGS: Four views of the cervical spine are compared to 06/12/2015. There is unchanged healed anterior discectomy and instrumented cervical spinal fusion at C4-C6. The C3-C4 disc prosthesis extends anterior to the inferior endplate of C3 unchanged since the prior exam but is new since the initial postoperative radiographs. Osteolysis is present about the disc prosthesis. There is no motion of the fused segments with flexion or extension. There is preservation of motion at C3-C4. There is unchanged mild degenerative disc disease at C2-C3 and C6-C7. There is no prevertebral soft tissue swelling or acute fracture. IMPRESSION: 1. Unchanged C3-C4 disc prosthesis with unchanged anterior displacement of the prosthesis relative to the initial postoperative images and osteolysis around the prosthesis. 2. Unchanged anterior cervical discectomy and instrumented fusion at C4-C6 with no motion of the fused segments. Requested By: VENANCIO LAYNE M.D. Dictated By: JOSE DU M.D. on Sep 16 2016 11:45A This document has been electronically signed by: JACE KHAN M.D. F on Sep 16 2016 12:14P [id number] Result History XR Spine Cervical Complete 4 or 5 Views (Order #[id number]) on 09/16/2016 - Order Result History Report Osteoarthritis of cervical spine 02/09/2013 Resolved Problems Problem Noted Date Diagnosed Date Resolved Date Psoriasis with arthropathy 02/09/2013 0 01/11/2018 Encounter for long-term (cur rent) use of high-risk medication 11/23/2011 01/11/2018 Overview (08/27/2016): High risk medication use Immunizations Immunization Administration Dates Next Due Flucelvax Influenza Quad 03/14/2019,04/01/2018 Influenza, Quad, Adjuvantate d, Intramuscular 05/05/2022 Influenza, Quadrivalent, [place] Culture-based MDCK, Preservative Free, Antibiotic Free, Intramuscular 04/01/2018 Influenza, Quadrivalent, Spl it, Preservative Free, Intradermal 03/09/2016 Influenza, Quadrivalent, Spl it, Preservative Free, Intramuscular 04/21/2023,04/04/2020,04/15/2015 Influenza, Trivalent, IM (MDV) 01/23/2011 Influenza, Trivalent, Preser vative Free, Intramuscular 02/22/2016,02/21/2014,02/21/2013 Influenza, Trivalent, Split, Preservative Free, Intradermal 04/02/2014,02/06/2013,04/08/2012 Pfizer SARS-CoV-2 Monovalent Vaccination (12+ Yrs) PURPLE 01/29/2021,12/26/2020 Pneumococcal Conjugate PCV 13 03/09/2016 Pneumococcal Polysaccharide PPV23 01/23/2011 Tdap 02/12/2019,05/24/2010 Social History Tobacco Use Types Packs/Day Years Used Date Smoking Tobacco: Former Cigarettes 0.5 21 2 000 - 10/2020 Smokeless Tobacco: Never Tobacco Cessation:Counseling Given: Not Answered Alcohol Use Standard Drinks/Week Comments Yes 0 (1 standard drink = 0.6 oz pur e alcohol) AUDIT-C Answer Date Recorded Q1: How often do you have a drink containing alc ohol? Monthly or less 01/17/2024 Average Number of Drinks Not on file 024 Frequency of Binge Drinking Not on file 12/23 PHQ-2 Answer Date Recorded PHQ-2 Total Score (If total score is 3 or more points, staff should administer the PHQ-9) 0 12/09/2021 Personal Safety Answer Date Recorded Have you ever been in or are you currently in a harmful physical or emotional relationship or is someone making you feel afraid or unsafe? Denies 09/08/2023 Sex and Gender Information Value Date Recorded Sex Assigned at Not on file Legal Sex Male 1:00 AM TIRE BLADDER MAKER Gender Identity Not on file Sexual Orientation Not on file Last Filed Vital Signs Vital Sign Reading Time Taken Comments Blood Pressure 115/71 01/17/2024 9:03 AM CDT Pulse 68 01/17/2024 9:03 AM CDT Temperature 36.6 C (97.9 F) 01/17/2024 9:03 AM CDT Respiratory Rate 16 09/10/2023 8:05 AM CDT Oxygen Saturation 96% 01/17/2024 9:03 AM CDT Inhaled Oxygen Concentration - - Weight 83 kg (183 lb) 01/17/2024 9:03 AM CDT Height 175.3 cm (5' 9) 01/17/2024 9:03 AM CDT Body Mass Index 27.02 01/17/2024 9:03 AM CDT Plan of Treatment Not on file Medical Devices Implanted Type Area Child Custody Evaluator Device Identifier Shelf Expiration Date Model / Serial / Lot [employer] Simplex P Full Dose Radiopaque Preblend Cement Bone Tobramycin 6197-9-010 - [id number] Implanted:Qty: 1 on 09/08/2023 at [facility] Right: Knee [employer] 10/21/2024 6197-9-010 / / [id number] [employer] Simplex P Full Dose Radiopaque Preblend Cement Bone Tobramycin 6197-9-010 - [id number] Implanted:Qty: 1 on 09/08/2023 at [facility] Right: Knee [employer] 10/21/2024 6197-9-010 / / [id number] [employer] Simplex P Full Dose Radiopaque Preblend Cement Bone Tobramycin 6197-9-010 - [id number] Implanted:Qty: 1 on 09/08/2023 at [facility] Right: Knee [employer] 10/21/2024 6197-9-010 / / [id number] [employer] Simplex P Full Dose Radiopaque Preblend Cement Bone Tobramycin 6197-9-010 - [id number] Implanted:Qty: 1 on 09/08/2023 at [facility] Right: Knee [employer] 12/21/2024 6197-9-010 / / [id number] [employer] Tibial Attune Cr Alpoly Sz 7 6mm [id number] - [id number] Implanted:Qty: 1 on 09/08/2023 at [facility] Right: Knee [employer] 07/21/2025 [id number] / / [id number] [employer] Simplex P Full Dose Radiopaque Preblend Cement Bone Tobramycin 6197-9-010 - [id number] Implanted:Qty: 1 on 09/08/2023 at [facility] Right: Knee [employer] 12/21/2024 6197-9-010 / / [id number] [employer] Stimulan Rapid Cure Kit Paste Bone Density Technician 10cc 20cc Bone Void 620-010 - [id number] Implanted:Qty: 1 on 09/08/2023 at [facility] Right: Knee [employer] 03/23/2026 620-010 / / [id number] [employer] Attune Cemented Cruciate Retaining Knee Right 7 Component Femoral [id number] - [id number] Implanted:Qty: 1 on 09/08/2023 at [facility] Right: Knee [employer] 06/23/2033 [id number] / / [id number] Insurance AETNA MEDICARE [facility] AETNA MEDICARE GOLD A[employer] MEDICARE GOLD WORKERS COMPENSATION GENERIC WORKERS COMPENSATION GENERIC Advance Directives For more information, please contact: [phone] * Full Code (Latest Code Status on File) Date Activated Date Inactivated Comments 09/08/2023 12:12 PM 09/10/2023 7:12 PM Care Teams Dam Worker Relationship Specialty Start Date End Date Tali Padgett MD PCP - General Family Practice 01/14/21
--- OUTSIDE RECORDS SUMMARY | 2024-11-01 13:51 | XMS_ITS | Clinical Summary ---
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 Encourage patient to take gabapentin regularly rather than prn with increased dose to 200 mg twice daily. Advice given about 2019 novel coronavirus by pasquale aguila 11/09/2019 Assessment & Plan (11/09/2019 1:10 PM CDT): The full impact of autoimmune diseases and immunomodulatory medications on susceptibility and complications of coronavirus disease is not yet studied. Because we have chronograph operator with this new virus we do not [...] that you continue to adhere to the nfkh-vp-aexh orders for the time being, especially in view of your potentially immunocompromised status. Feel free to reach out to us if you have additional questions after you review this information. You may review the current [employer] Covid-19 clinical guidance for Patients with Rheumatic Diseases if you copy and paste the link below into your web browser: [email or web address] gianni-P euvcvxk-dexf-Rmxtnfcji-Diseases.pdf Of course, Humira should be placed on [...] performed followed by 4 weeks parenteral antibiotic ([facility]). He will have records sent for our [...] 06/28/2017 Assessment & Plan (06/28/2017 3:13 PM ELEVATOR CONSTRUCTOR): Discussed chronic pain management concerns in the [...] 01/05/2017 Assessment & Plan (04/21/2023 4:02 PM ELEVATOR CONSTRUCTOR): Long-term use of high-risk medication requiring regular monitoring. Labs ordered, no s/s of med tox or infection. Encouraged to work with PCP to make sure all recommended cancer screens and vaccinations are complete. Avoid live-vaccines unless reviewed with can reconditioner first. Assessment & Plan (11/09/2019 1:11 PM [...] written. Assessment & Plan (04/15/2019 11:14 PM ELEVATOR CONSTRUCTOR): Patient on immunosuppressive medications requiring periodic lab [...] written. Assessment & Plan (06/28/2017 3:10 PM ELEVATOR CONSTRUCTOR): Patient on immunosuppressive medications requiring periodic lab [...] management. Assessment & Plan (06/28/2017 3:09 PM ELEVATOR CONSTRUCTOR): An optimal BMI (body mass index) is between 20 and 25. Encourage weight loss. Each pound of weight lost unloads 3-4 pounds per square inch pressure from weight bearing joints. Diet and exercise are the keys to weight management. 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 Assessment & Plan (04/21/2023 4:01 PM ELEVATOR CONSTRUCTOR): Stable/improved on simponi IV. Continue same. Labs [...] regimen. Assessment & Plan (04/15/2019 11:14 PM ELEVATOR CONSTRUCTOR): Psoriatic arthritis follow up with continued clinically [...] side effects. Interrupted Humira for recent hospitalization [facility] with staph infection R knee following [...] controlled. Assessment & Plan (06/28/2017 3:15 PM ELEVATOR CONSTRUCTOR): Psoriatic arthritis clinically stable on adalimumab ( [...] agrees with it. ACC# Date Time Exam [id number] Sep 16, 2016 11:19:00 18045 Spine Cervical 4 or 5 vws ACC# Date Time Exam [id number] Sep 16, 2016 11:19:00 [id number] Spine Cervical 4 or 5 vws EXAMINATION: [...] M.D. F on Sep 16 2016 12:14P [id number] Result History XR Spine Cervical Complete 4 or 5 Views (Order #[id number]) on 09/16/2016 - Order Result History Report Assessment & Plan (11/09/2019 1:14 PM CDT): XR Spine Cervical Complete 4 or 5 Views Status: Final result Study Result JACE KHAN M.D. F JOSE DU M.D.*FINAL REPORT* The radiology attending physician has personally reviewed this study, and has reviewed and/or edited this written report and agrees with it. ACC# Date Time Exam [id number] Sep 16, 2016 11:19:00 [id number] Spine Cervical 4 or 5 vws ACC# Date Time Exam [id number] Sep 16, 2016 11:19:00 [id number] Spine Cervical 4 or 5 vws EXAMINATION: [...] M.D. F on Sep 16 2016 12:14P [id number] Result History XR Spine Cervical Complete 4 or 5 Views (Order #[id number]) on 09/16/2016 - Order Result History Report [...] 03/09/2016 Pneumococcal Polysaccharide PPV23 01/23/2011 Tdap 02/12/2019,05/24/2010 Surgical History Surgery Date Site/Laterality Comments DISCECTOMY Discectomy OTHER SURGICAL HISTORY Right Shoulder Surgery Arthroscopy FLUORO GUIDED INJECTION HIP RIGHT 07/05/2017 Right FLUORO GUIDED INJECTION HIP RIGHT 09/24/2017 Right FLUORO GUIDED INJECTION HIP RIGHT 12/24/2017 Right FLUORO GUIDED INJECTION HIP RIGHT 09/12/2018 Right FLUORO GUIDED INJECTION HIP RIGHT 02/03/2019 Right EPIDURAL STEROID INJECTION 07/23/2019 - 08/22/2019 2 INJECTIONS DONE STEROID INJECTION HIP 11/07/2019 Right STEROID INJECTION KNEE 10/23/2019 - 11/21/2019 Right RIGHT KNEE 3 INJECTIONS IR PICC LINE PLACEMENT > 5 YEARS 09/09/2023 N/A REPLACEMENT TOTAL KNEE 09/08/2023 Right Medical History Medical History Date Comments Thrombocytopenia Psoriatic arthritis (HCC) Osteoarthritis Thyroid disease Carpal tunnel syndrome on both sides 11/27/2020 R worse Family History Medical History Relation Name Comments Alzheimer's disease Mother Dementia Mother Anesthesia problems Neg Hx Relation Name Status Comments Father Alive Mother Alive Social History Tobacco Use Types Packs/Day Years [...] on file Legal Sex Male 1:00 AM ELEVATOR CONSTRUCTOR Gender Identity Not on file Sexual Orientation Not on file Obstetrics History Last Filed Vital Signs Vital Sign Reading [...] 01/17/2024 9:03 AM CDT Plan of Treatment Health Maintenance Due Date Last Done Comments Colon Cancer Screening-Colonoscopy 1960 Hepatitis C Screening 1960 Prostate Cancer Screening-PSA 1960 Hepatitis B Screening 02/15/1978 Regular Well Visit/Exam 18-64 02/15/1978 Zoster Vaccine (1 of 2) 02/15/2010 Depression Screening 12/09/2022 12/09/2021 Covid-19 Vaccine (3 - season) 2024 01/29/2021, 12/26/2020 Influenza Vaccine (Season Ended) 2025 04/21/2023, 05/05/2022, 04/04/2020, Additional history exists DTaP/Tdap/Td Vaccine (3 - Td or Tdap) 02/12/2029 02/12/2019, 05/24/2010 Pneumococcal vaccine <65 Aged Out 03/09/2016, 06/2010 No longer eligible based on patient's age to complete this topic Medical Devices Implanted Type Area Personal Assistant Device Identifier Shelf Expiration Date Model / Serial / Lot [employer] Simplex P Full Dose Radiopaque Preblend Cement Bone Tobramycin 6197-9-010 - [id number] Implanted:Qty: 1 on 09/08/2023 at [facility] Right: Knee [employer] 10/21/2024 6197-9-010 / / [id number] [employer] Simplex P Full Dose Radiopaque Preblend Cement Bone Tobramycin 6197-9-010 - [id number] Implanted:Qty: 1 on 09/08/2023 at [facility] Right: Knee [employer] 10/21/2024 6197-9-010 / / [id number] [employer] Simplex P Full Dose Radiopaque Preblend Cement Bone Tobramycin 6197-9-010 - [id number] Implanted:Qty: 1 on 09/08/2023 at [facility] Right: Knee [employer] 10/21/2024 6197-9-010 / / [id number] [employer] Simplex P Full Dose Radiopaque Preblend Cement Bone Tobramycin 6197-9-010 - [id number] Implanted:Qty: 1 on 09/08/2023 at [facility] Right: Knee [employer] 12/21/2024 6197-9-010 / / [id number] [employer] Tibial Attune Cr Alpoly Sz 7 6mm [id number] - [id number] Implanted:Qty: 1 on 09/08/2023 at [facility] Right: Knee [employer] 07/21/2025 [id number] / / [id number] [employer] Simplex P Full Dose Radiopaque Preblend Cement Bone Tobramycin 6197-9-010 - [id number] Implanted:Qty: 1 on 09/08/2023 at [facility] Right: Knee [employer] 12/21/2024 6197-9-010 / / [id number] [employer] Stimulan Rapid Cure Kit Paste Spool Hauler 10cc 20cc Bone Void 620-010 - [id number] Implanted:Qty: 1 on 09/08/2023 at [facility] Right: Knee [employer] 03/23/2026 620-010 / / [id number] [employer] Attune Cemented Cruciate Retaining Knee Right 7 Component Femoral [id number] - [id number] Implanted:Qty: 1 on 09/08/2023 at [facility] Right: Knee [employer] 06/23/2033 [id number] / / [id number] Insurance AETNA MEDICARE GOLD AETNA MEDICARE GOLD AETNA MEDICARE GOLD WORKERS COMPENSATION GENERIC WORKERS COMPENSATION GENERIC Advance Directives For more information, please contact: [phone] * Full Code (Latest Code Status on File) Date Activated Date Inactivated Comments 09/08/2023 12:12 PM 09/10/2023 7:12 PM Care Teams Informatics Nurse Relationship Specialty Start Date End Date Tali Padgett MD PCP - General Family Practice 01/14/21
[2024-11-01 14:06] LABS: HAV RESULT Negative (Negative); Hepatitis B Core IgM Result Negative (Negative); Hepatitis B Surface Antigen Negative (Negative); Hepatitis C Virus Antibody Negative (Negative)
== END 2024-11-01 11:24 | disposition home or self-care (01) ==
PROVIDERS: PCP Family Medicine
DX: Z01.818 Encounter for other preprocedural examination (principal); R03.0 Elevated blood-pressure reading, without diagnosis of hypertension; Z79.899 Other long term (current) drug therapy
CPT/HCPCS: 36415; 80074; 81003; 82306; 85025; 85055; 85610; 85652; 85730; 86703; 93005; G0432

== ENCOUNTER 2024-11-22 10:34 | Outpatient (CLI) | payer MEDICARE, SELFPAY ==
--- OUTSIDE RECORDS SUMMARY | 2024-11-22 10:53 | XMS_ITS | Clinical Summary ---
Author Organization [facility] Address [address] [place] [address] Care Team Providers Care Director Of Scout Work Name Role Phone Unavailable Primary Care Provider Unavailabl e Social History Tobacco Use Types Packs/Day Years Used Date Smoking Tobacco: Never Assessed Sex and Gender Information Value Date Recorded Sex Assigned at Not on file Legal Sex Male 8:22 PM CDT Gender Identity Not on file Sexual Orientation Not on file Plan of Treatment Health Maintenance Due Date Last Done Comments Colorectal Cancer Screening Colonoscopy (10 Years) 1960 Annual Physical 02/15/1963 Hepatitis C 02/15/1978 DTaP, Tdap and Td Vaccines ( 1 - Tdap) 02/15/1979 Pneumococcal Vaccine: 50+ Ye ars (1 of 1 - PCV) 02/15/2010 Zoster Vaccines (1 of 2) 02/15/2010 COVID-19 Vaccine ( - 2023-2 5 season) 2024 RSV Immunization or 60+ Years (1 - 1-dose 75+ series) 02/15/2035 Meningococcal B Vaccine Aged Out No l onger eligible based on patient's age to complete this topic Meningococcal Vaccine Aged Out No darling ana eligible based on patient's age to complete this topic RSV Immunizations Under 20 Months Aged Out No longer eligible based on patient's age to complete this topic
--- OUTSIDE RECORDS SUMMARY | 2024-11-22 10:53 | XMS_ITS | Clinical Summary ---
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 Encourage patient to take gabapentin regularly rather than prn with increased dose to 200 mg twice daily. Advice given about 2019 novel coronavirus by pasquale aguila 11/09/2019 Assessment & Plan (11/09/2019 1:10 PM CDT): The full impact of autoimmune diseases and immunomodulatory medications on susceptibility and complications of coronavirus disease is not yet studied. Because we have diagnostic assistant with this new virus we do not [...] that you continue to adhere to the mukc-tc-enma orders for the time being, especially in view of your potentially immunocompromised status. Feel free to reach out to us if you have additional questions after you review this information. You may review the current [employer] Covid-19 clinical guidance for Patients with Rheumatic Diseases if you copy and paste the link below into your web browser: [email or web address] gianni-P kqtfxkd-wxrl-Fckdvxgyb-Diseases.pdf Of course, Humira should be placed on [...] performed followed by 4 weeks parenteral antibiotic ([facility]). He will have records sent for our [...] 06/28/2017 Assessment & Plan (06/28/2017 3:13 PM VICE PRESIDENT UNDERWRITING): Discussed chronic pain management concerns in the [...] 01/05/2017 Assessment & Plan (04/21/2023 4:02 PM VICE PRESIDENT UNDERWRITING): Long-term use of high-risk medication requiring regular monitoring. Labs ordered, no s/s of med tox or infection. Encouraged to work with PCP to make sure all recommended cancer screens and vaccinations are complete. Avoid live-vaccines unless reviewed with therapy director first. Assessment & Plan (11/09/2019 1:11 PM [...] written. Assessment & Plan (04/15/2019 11:14 PM VICE PRESIDENT UNDERWRITING): Patient on immunosuppressive medications requiring periodic lab [...] written. Assessment & Plan (06/28/2017 3:10 PM VICE PRESIDENT UNDERWRITING): Patient on immunosuppressive medications requiring periodic lab [...] management. Assessment & Plan (06/28/2017 3:09 PM VICE PRESIDENT UNDERWRITING): An optimal BMI (body mass index) is between 20 and 25. Encourage weight loss. Each pound of weight lost unloads 3-4 pounds per square inch pressure from weight bearing joints. Diet and exercise are the keys to weight management. 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 Assessment & Plan (04/21/2023 4:01 PM VICE PRESIDENT UNDERWRITING): Stable/improved on simponi IV. Continue same. Labs [...] regimen. Assessment & Plan (04/15/2019 11:14 PM VICE PRESIDENT UNDERWRITING): Psoriatic arthritis follow up with continued clinically [...] side effects. Interrupted Humira for recent hospitalization [facility] with staph infection R knee following a [...] controlled. Assessment & Plan (06/28/2017 3:15 PM VICE PRESIDENT UNDERWRITING): Psoriatic arthritis clinically stable on adalimumab ( [...] agrees with it. ACC# Date Time Exam [id number] Sep 16, 2016 11:19:00 24861 Spine Cervical 4 or 5 vws ACC# Date Time Exam [id number] Sep 16, 2016 11:19:00 [id number] Spine Cervical 4 or 5 vws EXAMINATION: [...] M.D. F on Sep 16 2016 12:14P [id number] Result History XR Spine Cervical Complete 4 or 5 Views (Order #[id number]) on 09/16/2016 - Order Result History Report Assessment & Plan (11/09/2019 1:14 PM CDT): XR Spine Cervical Complete 4 or 5 Views Status: Final result Study Result JACE KHAN M.D. F JOSE DU M.D.*FINAL REPORT* The radiology attending physician has personally reviewed this study, and has reviewed and/or edited this written report and agrees with it. ACC# Date Time Exam [id number] Sep 16, 2016 11:19:00 78608 Spine Cervical 4 or 5 vws ACC# Date Time Exam [id number] Sep 16, 2016 11:19:00 71570 Spine Cervical 4 or 5 vws EXAMINATION: [...] M.D. F on Sep 16 2016 12:14P [id number] Result History XR Spine Cervical Complete 4 or 5 Views (Order #[id number]) on 09/16/2016 - Order Result History Report [...] on file Legal Sex Male 1:00 AM VICE PRESIDENT UNDERWRITING Gender Identity Not on file Sexual Orientation [...] this topic Medical Devices Implanted Type Area Environmental Monitoring Specialist Device Identifier Shelf Expiration Date Model / Serial / Lot [employer] Simplex P Full Dose Radiopaque Preblend Cement Bone Tobramycin 6197-9-010 - [id number] Implanted:Qty: 1 on 09/08/2023 at [facility] Right: Knee [employer] 10/21/2024 6197-9-010 / / [id number] [employer] Simplex P Full Dose Radiopaque Preblend Cement Bone Tobramycin 6197-9-010 - [id number] Implanted:Qty: 1 on 09/08/2023 at [facility] Right: Knee [employer] 10/21/2024 6197-9-010 / / [id number] [employer] Simplex P Full Dose Radiopaque Preblend Cement Bone Tobramycin 6197-9-010 - [id number] Implanted:Qty: 1 on 09/08/2023 at [facility] Right: Knee [employer] 10/21/2024 6197-9-010 / / [id number] [employer] Simplex P Full Dose Radiopaque Preblend Cement Bone Tobramycin 6197-9-010 - [id number] Implanted:Qty: 1 on 09/08/2023 at [facility] Right: Knee [employer] 12/21/2024 6197-9-010 / / [id number] [employer] Tibial Attune Cr Alpoly Sz 7 6mm [id number] - [id number] Implanted:Qty: 1 on 09/08/2023 at [facility] Right: Knee [employer] 07/21/2025 [id number] / / [id number] [employer] Simplex P Full Dose Radiopaque Preblend Cement Bone Tobramycin 6197-9-010 - [id number] Implanted:Qty: 1 on 09/08/2023 at [facility] Right: Knee [employer] 12/21/2024 6197-9-010 / / [id number] [employer] Stimulan Rapid Cure Kit Paste Weatherization And Housing Inspector 10cc 20cc Bone Void 620-010 - [id number] Implanted:Qty: 1 on 09/08/2023 at [facility] Right: Knee [employer] 03/23/2026 620-010 / / [id number] [employer] Attune Cemented Cruciate Retaining Knee Right 7 Component Femoral [id number] - [id number] Implanted:Qty: 1 on 09/08/2023 at [facility] Right: Knee [employer] 06/23/2033 [id number] / / [id number] Insurance AETNA MEDICARE GOLD AETNA MEDICARE GOLD AETNA MEDICARE GOLD WORKERS COMPENSATION GENERIC WORKERS COMPENSATION GENERIC Advance Directives For more information, please contact: [phone] * Full Code (Latest Code Status on File) Date Activated Date Inactivated Comments 09/08/2023 12:12 PM 09/10/2023 7:12 PM Care Teams Director Of Kids Relationship Specialty Start Date End Date Tali Padgett MD PCP - General Family Practice 01/14/21
--- OUTSIDE RECORDS SUMMARY | 2024-11-22 10:53 | XMS_ITS | Referral Summary ---
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 Encourage patient to take gabapentin regularly rather than prn with increased dose to 200 mg twice daily. Advice given about 2019 novel coronavirus by pasquale aguila 11/09/2019 Assessment & Plan (11/09/2019 1:10 PM CDT): The full impact of autoimmune diseases and immunomodulatory medications on susceptibility and complications of coronavirus disease is not yet studied. Because we have ergonomist with this new virus we do not [...] that you continue to adhere to the nwnf-ac-fllv orders for the time being, especially in view of your potentially immunocompromised status. Feel free to reach out to us if you have additional questions after you review this information. You may review the current [employer] [employer] Covid-19 clinical guidance for Patients with Rheumatic Diseases if you copy and paste the link below into your web browser: [email or web address] [email or web address] qjkgiqa-acsy-[email or web address]-Diseases.pdf Of course, Humira should be placed on [...] performed followed by 4 weeks parenteral antibiotic ([facility] [place]). He will have records sent for our [...] 06/28/2017 Assessment & Plan (06/28/2017 3:13 PM SEAWEED HARVESTER): Discussed chronic pain management concerns in the [...] 01/05/2017 Assessment & Plan (04/21/2023 4:02 PM SEAWEED HARVESTER): Long-term use of high-risk medication requiring regular monitoring. Labs ordered, no s/s of med tox or infection. Encouraged to work with PCP to make sure all recommended cancer screens and vaccinations are complete. Avoid live-vaccines unless reviewed with account service representative first. Assessment & Plan (11/09/2019 1:11 PM [...] written. Assessment & Plan (04/15/2019 11:14 PM SEAWEED HARVESTER): Patient on immunosuppressive medications requiring periodic lab [...] written. Assessment & Plan (06/28/2017 3:10 PM SEAWEED HARVESTER): Patient on immunosuppressive medications requiring periodic lab [...] healthy diet and routine exercise regimen are beranrdo to weight management. Assessment & Plan (09/14/2018 [...] management. Assessment & Plan (06/28/2017 3:09 PM SEAWEED HARVESTER): An optimal BMI (body mass index) is between 20 and 25. Encourage weight loss. Each pound of weight lost unloads 3-4 pounds per square inch pressure from weight bearing joints. Diet and exercise are the keys to weight management. 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 Assessment & Plan (04/21/2023 4:01 PM SEAWEED HARVESTER): Stable/improved on simponi IV. Continue same. Labs [...] regimen. Assessment & Plan (04/15/2019 11:14 PM SEAWEED HARVESTER): Psoriatic arthritis follow up with continued clinically [...] side effects. Interrupted Humira for recent hospitalization [facility] with staph infection R knee following a [...] controlled. Assessment & Plan (06/28/2017 3:15 PM SEAWEED HARVESTER): Psoriatic arthritis clinically stable on adalimumab ( [...] agrees with it. ACC# Date Time Exam [id number] Sep 16, 2016 11:19:00 16482 Spine Cervical 4 or 5 vws ACC# Date Time Exam [id number] Sep 16, 2016 11:19:00 04323 Spine Cervical 4 or 5 vws EXAMINATION: [...] M.D. F on Sep 16 2016 12:14P [id number] Result History XR Spine Cervical Complete 4 or 5 Views (Order #[id number]) on 09/16/2016 - Order Result History Report Assessment & Plan (11/09/2019 1:14 PM CDT): XR Spine Cervical Complete 4 or 5 Views Status: Final result Study Result JACE KHAN M.D. F JOSE DU M.D.*FINAL REPORT* The radiology attending physician has personally reviewed this study, and has reviewed and/or edited this written report and agrees with it. ACC# Date Time Exam [id number] Sep 16, 2016 11:19:00 [id number] Spine Cervical 4 or 5 vws ACC# Date Time Exam [id number] Sep 16, 2016 11:19:00 [id number] Spine Cervical 4 or 5 vws EXAMINATION: [...] M.D. F on Sep 16 2016 12:14P [id number] Result History XR Spine Cervical Complete 4 or 5 Views (Order #[id number]) on 09/16/2016 - Order Result History Report [...] on file Legal Sex Male 1:00 AM SEAWEED HARVESTER Gender Identity Not on file Sexual Orientation [...] on file Medical Devices Implanted Type Area Military Source Operations Officer Device Identifier Shelf Expiration Date Model / Serial / Lot [employer] Simplex P Full Dose Radiopaque Preblend Cement Bone Tobramycin 6197-9-010 - [id number] Implanted:Qty: 1 on 09/08/2023 at [facility] Right: Knee [employer] 10/21/2024 6197-9-010 / / [id number] [employer] Simplex P Full Dose Radiopaque Preblend Cement Bone Tobramycin 6197-9-010 - [id number] Implanted:Qty: 1 on 09/08/2023 at [facility] Right: Knee [employer] 10/21/2024 6197-9-010 / / [id number] [employer] Simplex P Full Dose Radiopaque Preblend Cement Bone Tobramycin 6197-9-010 - [id number] Implanted:Qty: 1 on 09/08/2023 at [facility] Right: Knee [employer] 10/21/2024 6197-9-010 / / [id number] [employer] Simplex P Full Dose Radiopaque Preblend Cement Bone Tobramycin 6197-9-010 - [id number] Implanted:Qty: 1 on 09/08/2023 at [facility] Right: Knee [employer] 12/21/2024 6197-9-010 / / [id number] [employer] Tibial Attune Cr Alpoly Sz 7 6mm [id number] - [id number] Implanted:Qty: 1 on 09/08/2023 at [facility] Right: Knee [employer] 07/21/2025 [id number] / / [id number] [employer] Simplex P Full Dose Radiopaque Preblend Cement Bone Tobramycin 6197-9-010 - [id number] Implanted:Qty: 1 on 09/08/2023 at [facility] Right: Knee [employer] 12/21/2024 6197-9-010 / / [id number] [employer] Stimulan Rapid Cure Kit Paste Advanced Developer 10cc 20cc Bone Void 620-010 - [id number] Implanted:Qty: 1 on 09/08/2023 at [facility] Right: Knee [employer] 03/23/2026 620-010 / / [id number] [employer] Attune Cemented Cruciate Retaining Knee Right 7 Component Femoral [id number] - [id number] Implanted:Qty: 1 on 09/08/2023 at [facility] Right: Knee [employer] 06/23/2033 [id number] / / [id number] Insurance AETNA MEDICARE [facility] AETNA MEDICARE GOLD AETNA MEDICARE GOLD WORKERS COMPENSATION GENERIC WORKERS COMPENSATION GENERIC Advance Directives For more information, please contact: [phone] * Full Code (Latest Code Status on File) Date Activated Date Inactivated Comments 09/08/2023 12:12 PM 09/10/2023 7:12 PM Care Teams Cotton Gin Yard Supervisor Relationship Specialty Start Date End Date Tali Padgett MD PCP - General Family Practice 01/14/21
[2024-11-22 11:24] LABS: Alanine Aminotransferase 19 U/L (6-50); Albumin Level 4.4 g/dL (3.5-5.1); Alkaline Phosphatase 71 U/L (38-126); Anion Gap 8 mmol/L (4-12); Aspartate Amino Transferase 26 U/L (17-59); Bilirubin,Total 1.8 mg/dL (0.2-1.3); Blood Urea Nitrogen 18 mg/dL (9-20); Calcium 9.4 mg/dL (8.4-10.2); Carbon Dioxide 25 mmol/L (22-30); Chloride 105 mmol/L (98-107); Cholesterol 153 mg/dL (0-200); Estimated Glomerular Filt Rate > 60; Glucose 104 mg/dL (65-110); HDL Direct 47 mg/dL; Potassium 4.5 mmol/L (3.4-5.0); Sodium 138 mmol/L (137-145); Total Protein 7.3 g/dL (6.3-8.2); Triglycerides 142 mg/dL (<150)
[2024-11-22 11:58] LABS: Prostate Specific Antigen 0.2 ng/mL (< OR = 4.0)
[2024-11-22 12:04] LABS: Thyroid Stimulating Hormone Reflex 2.850 uIU/mL (0.465-4.68)
[2024-11-22 12:17] LABS: Vitamin B12. 989.0 pg/mL (239-931)
[2024-11-22 12:33] LABS: Hemoglobin A1C. 5.5 % (<5.7)
== END 2024-11-22 10:35 | disposition home or self-care (01) ==
PROVIDERS: PCP Family Medicine; Visit Provider Family Medicine
DX: I10 Essential (primary) hypertension (principal); E78.5 Hyperlipidemia, unspecified; E03.9 Hypothyroidism, unspecified; R73.01 Impaired fasting glucose; E53.8 Deficiency of other specified B group vitamins; Z12.5 Encounter for screening for malignant neoplasm of prostate
CPT/HCPCS: 36415; 80053; 80061; 82607; 83036; 84153; 84443; G0103

== ENCOUNTER 2025-01-13 11:06 | Outpatient (CLI) | payer MEDICARE, SELFPAY ==
--- OUTSIDE RECORDS SUMMARY | 2008-09-07 08:45 | XMS_ITS | Continuity of Care Document ---
Author Organization [facility] Address [address] [place] [address] Phone Care Team Providers Care Chinese Medicine Practitioner Name Role Phone Rodriguez OD, Bulmaro Unavailable Unavailable Procedures Procedure Date Eye Exam & Treatment Refraction Eye Exam & Treatment Eye Exam, New Patient Refraction Advance Directives Directive Yes / No Effective Date File Name No Information Encounters Encounter Description Practice Location Reason(s) For Visit Diagnoses Date Provider Providers Copied on Encounter [facility], [id number] [place] [address] [address], [place], [place], [id number], [place] tel:[phone] [facility] No Information 7-200 9 Rodriguez OD Bulmaro. [address], [place], [place], [facility], . tel:[phone] [facility], [id number] [place] [address] [address], [place], [place], [id number], [place] tel:[phone] [facility] No Information Jul- 1-200 8 Krishnasamy Bowen. [address], [place], [place], [facility], [place]. tel:[phone] [facility], [id number] [place] [address] [address], [place], [place], [id number], [place] tel:[phone] [facility] No Information Jul- 1-200 7 Rodriguez OD Bulmaro. [address], [place], [address], [place]. tel:[phone] Family History Family Member Type Diagnosis Age At Onset No Information Payers Payer name Insurance type Covered green party ID Authoriza tion(s) No Information Social History Type Description Quantity Date Captured Comments Sex Male Smoking Status No Information Chief Complaint And Reason For Visit No Information Reason For Referral Reason For Referral No Information History Of Present Illness Encounter Date Complaint History Of Prese nt Illness No Information Functional Status Date Functional Assessmen t No Information Instructions Date Instruction Additional Infor mation No Information Assessments Type Assessment Date No Information Patient Care Teams Name Effective Dates (start - stop) Status Members No Information
--- OUTSIDE RECORDS SUMMARY | 2021-10-07 05:49 | XMS_ITS | Continuity of Care Document ---
Author Organization [employer] Address [address] [place] [address] Phone Care Team Providers Care Water Quality Analyst Name Role Phone Liban OTR/L, CHT, [place] Unavailable Unavailable Procedures Procedure Date OT Evaluation Low Complexity Therapeutic Exercise Theraputty Therapeutic Activities Neuromuscular Re-Ed Therapeutic Exercise Progress Note Therapeutic Activities Neuromuscular Re-Ed Therapeutic Exercise Therapeutic Activities Neuromuscular Re-Ed Therapeutic Exercise Therapeutic Activities Neuromuscular Re-Ed Therapeutic Exercise Therapeutic Activities Neuromuscular Re-Ed Therapeutic Exercise Therapeutic Activities Neuromuscular Re-Ed Therapeutic Exercise Therapeutic Activities Neuromuscular Re-Ed Therapeutic Exercise Therapeutic Activities Neuromuscular Re-Ed Manual Therapy Therapeutic Exercise Therapeutic Activities Therapeutic Exercise Neuromuscular Re-Ed Neuromuscular Re-Ed Therapeutic Activities Therapeutic Exercise PT Evaluation Moderate Complexity Neuromuscular Re-Ed Therapeutic Exercise Manual Therapy Therapeutic Activities Neuromuscular Re-Ed Therapeutic Exercise Therapeutic Exercise Therapeutic Activities Neuromuscular Re-Ed Hot or Cold Pack Therapeutic Activities Neuromuscular Re-Ed Therapeutic Exercise Electrical Stimulation Therapeutic Activities Neuromuscular Re-Ed Therapeutic Exercise Therapeutic Activities Therapeutic Exercise Neuromuscular Re-Ed Neuromuscular Re-Ed Therapeutic Activities Therapeutic Exercise Electrical Stimulation Therapeutic Activities Neuromuscular Re-Ed Therapeutic Exercise Electrical Stimulation Neuromuscular Re-Ed Therapeutic Activities Manual Therapy Progress Note Therapeutic Exercise Therapeutic Activities Neuromuscular Re-Ed Therapeutic Exercise Manual Therapy Electrical Stimulation Therapeutic Activities Manual Therapy Neuromuscular Re-Ed Electrical Stimulation Therapeutic Exercise Therapeutic Activities Neuromuscular Re-Ed Therapeutic Exercise PT Evaluation Moderate Complexity Neuromuscular Re-Ed Therapeutic Activities Therapeutic Exercise Therapeutic Activities Manual Therapy Therapeutic Exercise Neuromuscular Re-Ed Therapeutic Activities Neuromuscular Re-Ed Therapeutic Exercise Manual Therapy Progress Note Neuromuscular Re-Ed Therapeutic Exercise Therapeutic Activities Manual Therapy Manual Therapy Neuromuscular Re-Ed Therapeutic Activities Therapeutic Exercise Neuromuscular Re-Ed Therapeutic Activities Manual Therapy Therapeutic Exercise Therapeutic Activities Neuromuscular Re-Ed Therapeutic Exercise Manual Therapy Therapeutic Activities Neuromuscular Re-Ed Therapeutic Exercise Manual Therapy Therapeutic Activities Therapeutic Exercise Neuromuscular Re-Ed Manual Therapy Hot or Cold Pack Electrical Stimulation Therapeutic Activities Therapeutic Exercise Manual Therapy Neuromuscular Re-Ed Therapeutic Activities PT Evaluation Low Complexity Manual Therapy Therapeutic Exercise Manual Therapy Therapeutic Exercise Therapeutic Activities Neuromuscular Re-Ed Neuromuscular Re-Ed Therapeutic Activities Manual Therapy Therapeutic Exercise Neuromuscular Re-Ed Therapeutic Exercise Therapeutic Activities Manual Therapy Therapeutic Activities Manual Therapy Neuromuscular Re-Ed Therapeutic Exercise Neuromuscular Re-Ed Therapeutic Activities Therapeutic Exercise Manual Therapy Neuromuscular Re-Ed Progress Note Therapeutic Exercise Therapeutic Activities Manual Therapy Hot or Cold Pack Neuromuscular Re-Ed Therapeutic Exercise Therapeutic Activities Manual Therapy Manual Therapy Neuromuscular Re-Ed Therapeutic Activities Therapeutic Exercise Electrical Stimulation Hot or Cold Pack Therapeutic Activities Neuromuscular Re-Ed Therapeutic Exercise Manual Therapy Neuromuscular Re-Ed Therapeutic Exercise Therapeutic Activities Hot or Cold Pack Manual Therapy Electrical Stimulation Therapeutic Activities Neuromuscular Re-Ed Therapeutic Exercise Manual Therapy Hot or Cold Pack Electrical Stimulation Neuromuscular Re-Ed Progress Note Therapeutic Activities Therapeutic Exercise Hot or Cold Pack Manual Therapy Electrical Stimulation Therapeutic Activities Manual Therapy Therapeutic Exercise Neuromuscular Re-Ed Manual Therapy Therapeutic Exercise Neuromuscular Re-Ed Therapeutic Activities Therapeutic Activities Neuromuscular Re-Ed Therapeutic Exercise Manual Therapy Therapeutic Activities Neuromuscular Re-Ed Therapeutic Exercise Manual Therapy Hot or Cold Pack Therapeutic Exercise Therapeutic Activities Neuromuscular Re-Ed Manual Therapy PT Evaluation Moderate Complexity Therapeutic Activities Therapeutic Exercise Progress Note Neuromuscular Re-Ed Therapeutic Activities Therapeutic Exercise Manual Therapy Therapeutic Activities Neuromuscular Re-Ed Therapeutic Exercise Manual Therapy Therapeutic Activities Neuromuscular Re-Ed Manual Therapy Therapeutic Exercise Therapeutic Activities Neuromuscular Re-Ed Therapeutic Exercise Manual Therapy Therapeutic Activities Neuromuscular Re-Ed Therapeutic Exercise Manual Therapy Therapeutic Activities Neuromuscular Re-Ed Therapeutic Exercise Manual Therapy Progress Note Therapeutic Activities Neuromuscular Re-Ed Therapeutic Exercise Manual Therapy Therapeutic Activities Neuromuscular Re-Ed Therapeutic Exercise Manual Therapy Therapeutic Activities Neuromuscular Re-Ed Therapeutic Exercise Manual Therapy Therapeutic Activities Neuromuscular Re-Ed Therapeutic Exercise Manual Therapy Hot or Cold Pack Progress Note Therapeutic Activities Neuromuscular Re-Ed Therapeutic Exercise Manual Therapy Therapeutic Activities Neuromuscular Re-Ed Therapeutic Exercise Manual Therapy Therapeutic Activities Neuromuscular Re-Ed Therapeutic Exercise Manual Therapy Hot or Cold Pack Therapeutic Activities Neuromuscular Re-Ed Therapeutic Exercise Manual Therapy Hot or Cold Pack Therapeutic Activities Neuromuscular Re-Ed Therapeutic Exercise Manual Therapy Hot or Cold Pack PT Evaluation Low Complexity Therapeutic Activities Neuromuscular Re-Ed Therapeutic Exercise WORK COND/WORK HARD RE EVAL Work Conditioning Initial 2 hrs 019 Work Conditioning add 1 hr Work Conditioning Initial 2 hrs 019 Work Conditioning add 1 hr Work Conditioning Initial 2 hrs 019 Work Conditioning add 1 hr Work Conditioning Initial 2 hrs 019 Work Conditioning add 1 hr Work Conditioning Initial 2 hrs 019 Work Conditioning add 1 hr Work Conditioning Initial 2 hrs 019 Work Conditioning add 1 hr Work Conditioning Initial 2 hrs 019 Work Conditioning add 1 hr WORK COND/WORK HARD RE EVAL Work Conditioning Initial 2 hrs 019 Work Conditioning add 1 hr Work Conditioning Initial 2 hrs 019 Work Conditioning add 1 hr Work Conditioning Initial 2 hrs 019 Work Conditioning add 1 hr Work Conditioning Initial 2 hrs 019 Work Conditioning add 1 hr Work Conditioning Initial 2 hrs 019 Work Conditioning add 1 hr Work Conditioning Initial 2 hrs 019 Work Conditioning add 1 hr Work Conditioning Initial 2 hrs 019 Work Conditioning add 1 hr Work Conditioning Initial 2 hrs 019 Work Conditioning add 1 hr Work Cond Initial Report Work Conditioning Initial 2 hrs 019 Progress Note Therapeutic Exercise Therapeutic Activities Neuromuscular Re-Ed Manual Therapy Progress Note Therapeutic Exercise Therapeutic Activities Neuromuscular Re-Ed Manual Therapy Hot or Cold Pack Electrical Stimulation Therapeutic Exercise Therapeutic Activities Neuromuscular Re-Ed Manual Therapy Hot or Cold Pack Electrical Stimulation Therapeutic Exercise Therapeutic Activities Neuromuscular Re-Ed Manual Therapy Hot or Cold Pack Electrical Stimulation Progress Note Therapeutic Exercise Therapeutic Activities Neuromuscular Re-Ed Manual Therapy Therapeutic Exercise Therapeutic Activities Neuromuscular Re-Ed Manual Therapy Hot or Cold Pack Electrical Stimulation Progress Note Therapeutic Exercise Therapeutic Activities Neuromuscular Re-Ed Manual Therapy Hot or Cold Pack Electrical Stimulation Therapeutic Exercise Therapeutic Activities Neuromuscular Re-Ed Manual Therapy Hot or Cold Pack Therapeutic Exercise Therapeutic Activities Neuromuscular Re-Ed Manual Therapy Hot or Cold Pack Electrical Stimulation Therapeutic Exercise Therapeutic Activities Neuromuscular Re-Ed Manual Therapy Hot or Cold Pack Electrical Stimulation Therapeutic Exercise Therapeutic Activities Neuromuscular Re-Ed Manual Therapy Hot or Cold Pack Electrical Stimulation Therapeutic Exercise Therapeutic Activities Neuromuscular Re-Ed Manual Therapy Hot or Cold Pack Therapeutic Exercise Therapeutic Activities Neuromuscular Re-Ed Manual Therapy Hot or Cold Pack Therapeutic Exercise Therapeutic Activities Neuromuscular Re-Ed Manual Therapy Hot or Cold Pack Electrical Stimulation Therapeutic Exercise Therapeutic Activities Neuromuscular Re-Ed Manual Therapy Hot or Cold Pack Electrical Stimulation Therapeutic Exercise Manual Therapy Hot or Cold Pack Therapeutic Exercise Manual Therapy Hot or Cold Pack PT Evaluation Low Complexity Therapeutic Exercise Manual Therapy Hot or Cold Pack WORK COND/WORK HARD RE EVAL Work Conditioning Initial 2 hrs 018 Work Conditioning add 1 hr Work Conditioning Initial 2 hrs 018 Work Conditioning add 1 hr Work Conditioning Initial 2 hrs 018 Work Conditioning add 1 hr Work Conditioning Initial 2 hrs 018 Work Conditioning add 1 hr Work Conditioning Initial 2 hrs 018 Work Conditioning add 1 hr WORK COND/WORK HARD RE EVAL Work Conditioning Initial 2 hrs 018 Work Conditioning add 1 hr Work Conditioning Initial 2 hrs 018 Work Conditioning add 1 hr Work Conditioning Initial 2 hrs 018 Work Conditioning add 1 hr Work Conditioning Initial 2 hrs 018 Work Conditioning add 1 hr Work Conditioning Initial 2 hrs 018 Work Conditioning add 1 hr Work Conditioning Initial 2 hrs - 018 Work Conditioning add 1 hr Work Conditioning Initial 2 hrs 018 Work Conditioning add 1 hr Work Conditioning Initial 2 hrs 018 Work Conditioning add 1 hr Work Conditioning Initial 2 hrs 018 Work Conditioning add 1 hr Work Cond Initial Report Work Conditioning Initial 2 hrs 018 Work Conditioning add 1 hr Progress Note Therapeutic Exercise Therapeutic Activities Neuromuscular Re-Ed Manual Therapy Hot or Cold Pack Electrical Stimulation Therapeutic Exercise Therapeutic Activities Neuromuscular Re-Ed Manual Therapy Hot or Cold Pack Electrical Stimulation Therapeutic Exercise Therapeutic Activities Neuromuscular Re-Ed Manual Therapy Hot or Cold Pack Electrical Stimulation Therapeutic Exercise Therapeutic Activities Neuromuscular Re-Ed Manual Therapy Hot or Cold Pack Electrical Stimulation Therapeutic Exercise Therapeutic Activities Neuromuscular Re-Ed Manual Therapy Hot or Cold Pack Electrical Stimulation Progress Note Therapeutic Exercise Therapeutic Activities Neuromuscular Re-Ed Manual Therapy Hot or Cold Pack Electrical Stimulation Therapeutic Exercise Therapeutic Activities Neuromuscular Re-Ed Manual Therapy Therapeutic Exercise Therapeutic Activities Neuromuscular Re-Ed Manual Therapy Therapeutic Exercise Therapeutic Activities Neuromuscular Re-Ed Manual Therapy Therapeutic Exercise Therapeutic Activities Neuromuscular Re-Ed Manual Therapy Hot or Cold Pack Electrical Stimulation Therapeutic Exercise Therapeutic Activities Neuromuscular Re-Ed Manual Therapy Hot or Cold Pack Electrical Stimulation Therapeutic Exercise Therapeutic Activities Neuromuscular Re-Ed Manual Therapy Progress Note Therapeutic Exercise Therapeutic Activities Neuromuscular Re-Ed Manual Therapy Therapeutic Exercise Therapeutic Activities Neuromuscular Re-Ed Manual Therapy Hot or Cold Pack Electrical Stimulation Therapeutic Exercise Therapeutic Activities Neuromuscular Re-Ed Manual Therapy Therapeutic Exercise Therapeutic Activities Neuromuscular Re-Ed Manual Therapy Hot or Cold Pack Electrical Stimulation Therapeutic Exercise Therapeutic Activities Neuromuscular Re-Ed Manual Therapy Hot or Cold Pack Electrical Stimulation Therapeutic Exercise Therapeutic Activities Neuromuscular Re-Ed Manual Therapy Hot or Cold Pack Electrical Stimulation Progress Note Therapeutic Exercise Therapeutic Activities Neuromuscular Re-Ed Manual Therapy Therapeutic Exercise Therapeutic Activities Neuromuscular Re-Ed Manual Therapy Hot or Cold Pack Electrical Stimulation Therapeutic Exercise Therapeutic Activities Neuromuscular Re-Ed Manual Therapy Hot or Cold Pack Electrical Stimulation Therapeutic Exercise Therapeutic Activities Neuromuscular Re-Ed Manual Therapy Hot or Cold Pack Electrical Stimulation Therapeutic Exercise Therapeutic Activities Neuromuscular Re-Ed Manual Therapy Hot or Cold Pack Electrical Stimulation Therapeutic Exercise Therapeutic Activities Neuromuscular Re-Ed Manual Therapy Hot or Cold Pack Electrical Stimulation Therapeutic Exercise Therapeutic Activities Neuromuscular Re-Ed Manual Therapy Hot or Cold Pack Electrical Stimulation Progress Note Therapeutic Exercise Therapeutic Activities Neuromuscular Re-Ed Manual Therapy Hot or Cold Pack Electrical Stimulation Therapeutic Exercise Therapeutic Activities Neuromuscular Re-Ed Manual Therapy Hot or Cold Pack Electrical Stimulation Progress Note Therapeutic Exercise Therapeutic Activities Neuromuscular Re-Ed Manual Therapy Hot or Cold Pack Electrical Stimulation Therapeutic Exercise Therapeutic Activities Neuromuscular Re-Ed Manual Therapy Hot or Cold Pack Electrical Stimulation Therapeutic Exercise Therapeutic Activities Neuromuscular Re-Ed Manual Therapy Hot or Cold Pack Electrical Stimulation Therapeutic Exercise Therapeutic Activities Neuromuscular Re-Ed Manual Therapy Hot or Cold Pack Electrical Stimulation Therapeutic Exercise Therapeutic Activities Manual Therapy Therapeutic Exercise Therapeutic Activities Manual Therapy Progress Note Therapeutic Exercise Therapeutic Activities Manual Therapy Therapeutic Exercise Therapeutic Activities Neuromuscular Re-Ed Manual Therapy Hot or Cold Pack Electrical Stimulation Therapeutic Exercise Therapeutic Activities Manual Therapy Hot or Cold Pack Electrical Stimulation Therapeutic Exercise Therapeutic Activities Manual Therapy Hot or Cold Pack Electrical Stimulation Therapeutic Exercise Therapeutic Activities Manual Therapy Hot or Cold Pack Electrical Stimulation Therapeutic Exercise Therapeutic Activities Manual Therapy Hot or Cold Pack Electrical Stimulation Therapeutic Exercise Therapeutic Activities Manual Therapy Hot or Cold Pack Electrical Stimulation Progress Note Therapeutic Exercise Therapeutic Activities Manual Therapy Hot or Cold Pack Electrical Stimulation Therapeutic Exercise Therapeutic Activities Manual Therapy Hot or Cold Pack Electrical Stimulation Progress Note Therapeutic Exercise Therapeutic Activities Manual Therapy Hot or Cold Pack Electrical Stimulation Therapeutic Exercise Therapeutic Activities Manual Therapy Hot or Cold Pack Electrical Stimulation Therapeutic Exercise Therapeutic Activities Manual Therapy Hot or Cold Pack Electrical Stimulation Therapeutic Exercise Therapeutic Activities Manual Therapy Hot or Cold Pack Electrical Stimulation Therapeutic Exercise Therapeutic Activities Neuromuscular Re-Ed Manual Therapy Hot or Cold Pack Electrical Stimulation Therapeutic Exercise Therapeutic Activities Neuromuscular Re-Ed Manual Therapy Hot or Cold Pack Electrical Stimulation Therapeutic Exercise Neuromuscular Re-Ed Manual Therapy Hot or Cold Pack Electrical Stimulation PT Evaluation Moderate Complexity Therapeutic Exercise Neuromuscular Re-Ed Manual Therapy Hot or Cold Pack Electrical Stimulation PT RE-EVALUATION THERAPEUTIC EXERCISES MANUAL THERAPY HOT/COLD PACK ELECTRIC STIMULATION UNATT THERAPEUTIC EXERCISES MANUAL THERAPY HOT/COLD PACK ELECTRIC STIMULATION UNATT THERAPEUTIC EXERCISES MANUAL THERAPY HOT/COLD PACK ELECTRIC STIMULATION UNATT THERAPEUTIC EXERCISES MANUAL THERAPY HOT/COLD PACK ELECTRIC STIMULATION UNATT THERAPEUTIC EXERCISES MANUAL THERAPY HOT/COLD PACK ELECTRIC STIMULATION UNATT THERAPEUTIC EXERCISES MANUAL THERAPY HOT/COLD PACK ELECTRIC STIMULATION UNATT THERAPEUTIC EXERCISES MANUAL THERAPY HOT/COLD PACK ELECTRIC STIMULATION UNATT THERAPEUTIC EXERCISES MANUAL THERAPY HOT/COLD PACK ELECTRIC STIMULATION UNATT THERAPEUTIC EXERCISES NEUROMUSCULAR RE-ED MANUAL THERAPY HOT/COLD PACK ELECTRIC STIMULATION UNATT THERAPEUTIC EXERCISES NEUROMUSCULAR RE-ED MANUAL THERAPY HOT/COLD PACK ELECTRIC STIMULATION UNATT THERAPEUTIC EXERCISES MANUAL THERAPY HOT/COLD PACK ELECTRIC STIMULATION UNATT THERAPEUTIC EXERCISES MANUAL THERAPY HOT/COLD PACK ELECTRIC STIMULATION UNATT THERAPEUTIC EXERCISES MANUAL THERAPY HOT/COLD PACK ELECTRIC STIMULATION UNATT THERAPEUTIC EXERCISES MANUAL THERAPY HOT/COLD PACK ELECTRIC STIMULATION UNATT THERAPEUTIC EXERCISES MANUAL THERAPY HOT/COLD PACK ELECTRIC STIMULATION UNATT THERAPEUTIC EXERCISES MANUAL THERAPY HOT/COLD PACK ELECTRIC STIMULATION UNATT THERAPEUTIC EXERCISES MANUAL THERAPY HOT/COLD PACK ELECTRIC STIMULATION UNATT PT EVALUATION THERAPEUTIC EXERCISES Advance Directives Directive Yes / No Effective Date File Name No Information Encounters Encounter Description Practice Location Reason(s) For Visit Diagnoses Date Provider Providers Copied on Encounter [facility], [id number], tel:[phone] [place] No Information 2 [place]. [address] [facility], [facility] [address], [place], [facility], . tel:[phone] [facility] [address] [place] [address], [place], [id number], tel:[phone] [place] No Information 2 [place]. [address] [facility], [facility] [address], [place], [facility], [place]. tel:[phone] Referring Provider: Sotero Dickens, [address], [place], [address]. tel:[phone], [place], [place], [id number], tel:[phone] [place] No Information 2 Otoniel Johnson. . Referring Provider: Sotero Rojo, [address] [place] [address] [address], [place], [address]. tel:[phone], [place], [place], [id number], tel:[phone] [place] No Information Apr-0 7- 2 Otoniel Johnson. . Referring Provider: Sotero Rojo, [address] [place] [address] [address], [place], [address]. tel:[phone], [place], [place], [id number], tel:[phone] [place] No Information Apr-0 2 Muehl Jaden. [address] [place] [address], [address], [place], [facility], . tel:[phone] Referring Provider: Sotero Rojo, [address] [place] [address] [address], [place], [address]. tel:[phone] [address] [address], [place], [place], [id number], tel:[phone] [place] No Information Mar-3 2 Muehl Jaden. [address] [place] [address], [address], [place], [facility], . tel:[phone] Referring Provider: Sotero Rojo, [address] [place] [address] [address], [place], [address]. tel:[phone], [id number], tel:[phone] [place] No Information Mar-2 2 Muehl Jaden. [address] [place] [address], [address], [place], [facility], . tel:[phone] Referring Provider: Sotero Rojo, [address] [place] [address] [address], [place], [address]. tel:[phone] [facility] [address] [place] [address], [id number], tel:[phone] [place] No Information Mar-2 - 2 Muehl Jaden. [address] [place] [address], [address], [place], [place], [facility], [place]. tel:[phone] Referring Provider: Sotero Rojo, [address] [place] [address] [address], [place], [address]. tel:[phone], [place], [place], [id number], tel:[phone] [place] No Information Mar-2 2-202 2 Essner Alex. . Referring Provider: oStero Rojo, [address] [place] [address] [address], [place], [address]. tel:[phone], [place], [place], [id number], tel:[phone] [place] No Information Mar-1 2 Muehl Jaden. [address] [place] [address], [address], [place], [facility], [place]. tel:[phone] Referring Provider: Sotero Rojo, [address] [place] [address] [address], [place], [address]. tel:[phone] [address] [address], [place], [place], [id number], tel:[phone] [place] No Information Mar-1 2 Muehl Jaden. [address] [place] [address], [address], [place], [place], [facility], [place]. tel:[phone] Referring Provider: Sotero Rojo, [address] [place] [address] [address], [place], [address]. tel:[phone], [place], [place], [id number], tel:[phone] [place] No Information Mar-1 - 2 Muehl Jaden. [address] [place] [address], [address], [place], [facility], [place]. tel:[phone] Referring Provider: Sotero Rojo, [address] [place] [address] [address], [place], [address]. tel:[phone] [address], [place], [place], [id number], tel:[phone] [place] No Information Mar-0 8-202 2 Muehl Jaden. [address] [place] [address], [address], [place], [facility], . tel:[phone] Referring Provider: Sotero Rojo, [address] [place] [address] [address], [place], [address]. tel:[phone] [facility], [place], [place], [id number], tel:[phone] [place] No Information Mar-0 4-202 2 Muehl Jaden. [address] [place] [address], [address], [facility], . tel:[phone] Referring Provider: Sotero Rojo, [address] [place] [address] [address], [place], [address]. tel:[phone] [place] [address], [id number], tel:[phone] [place] No Information Mar-0 2-202 2 Muehl Jaden. [address] [place] [address], [address], [facility], . tel:[phone] Referring Provider: Sotero Rojo, [address] [place] [address] [address], [place], [address]. tel:[phone] [address], [place], [place], [id number], [place] tel:[phone] [place] No Information Feb-2 4-202 2 Muehl Jaden. [address] [place] [address], [facility] [address], [place], [facility], . tel:[phone] Referring Provider: Sotero Rojo, [address] [place] [address] [address], [place], [address]. tel:[phone], [place], [id number], [place] tel:[phone] [place] No Information Jun- 2 Lehnen Marifer. . Referring Provider: Sotero Rojo, [address] [place] [address] [address], [place], [address]. tel:[phone] [facility], [address] [place], [place] [address], [place], [place], [id number], [place] tel:[phone] [place] No Information 2 Muehl Jaden. [address] [facility], [address], [place], [place], [facility], [place]. tel:[phone] Referring Provider: Sotero Rojo, [address] [place] [address] [address], [place], [address]. tel:[phone] [facility], [address] [place], [place] [address], [place], [id number], [place] tel:[phone] [place] No Information 2 Lehnen Marifer. . Referring Provider: Sotero Rojo, [address] [place] [address] [address], [place], [address]. tel:[phone] [facility] [address] [place], [place] [address], [place], [place], [id number], [place] tel:[phone] [place] No Information 2 Muehl Jaden. [address] [place] [address], [address], [place], [place], [facility], [place]. tel:[phone] Referring Provider: Sotero Rojo, [address] [place] [address] [address], [place], [address]. tel:[phone] [facility] [address] [place], [place] [address] [address], [place], [place], [id number], [place] tel:[phone] [place] No Information b 2 Muehl Jaden. [address] [facility], [address], [place], [place], [facility], . tel:[phone] Referring Provider: Sotero Rojo, [address] [place] [address] [address], [place], [address]. tel:[phone] [address], [place], [place], [address], [place] tel:[phone] [place] No Information 2 Muehl Jaden. [address] [place] [address], [address], [place], [facility], . tel:[phone] Referring Provider: Sotero Rojo, [address] [place] [address] [address], [place], [address]. tel:[phone], [place], [place], [address], tel:[phone] [place] No Information 2 Muehl Jaden. [address] [place] [address], [address], [place], [facility], . tel:[phone] Referring Provider: Sotero Rojo, [address] [place] [address] [address], [place], [address]. tel:[phone] [place] [address], [id number], [place] tel:[phone] [place] No Information 2 Muehl Jaden. [address] [place] [address], [address], [place], [facility], . tel:[phone] Referring Provider: Sotero Rojo, [address] [place] [address] [address], [place], [address]. tel:[phone] [address] [place] [address], [id number], [place] tel:[phone] [place] No Information 2 Muehl Jaden. [address] [place] [address], [address], [place], [facility], . tel:[phone] Referring Provider: Sotero Rojo, [address] [place] [address] [address], [place], [address]. tel:[phone], [place], [place], [address], [place] tel:[phone] [place] No Information 1 Lion Jude. . Referring Provider: Ki Campbell, [address] [facility] [address], [place], [address]. tel:[phone] [facility], [address], [place], [place], [address], [place] tel:[phone] [place] No Information 1 Lion Jude. . Referring Provider: Ki Campbell, [address] [facility] [address], [place], [address]. tel:[phone] [facility] [address] [place], [place] [address], [place], [address], [place] tel:[phone] [place] No Information 1 Lion Jude. . Referring Provider: Brenda Gupta[address] [facility] [address], [place], [address]. tel:[phone] [place] [address] [place], [place] [address], [place], [place], [address], [place] tel:[phone] [place] No Information 1 Karissa Goodman. [address] [facility], [address], [place], [address], [place]. tel:[phone] Referring Provider: Brenda Gupta[address] [facility] [address], [place], [address]. tel:[phone] [facility] [facility], [place], [address], [place] tel:[phone] [place] No Information 1 Lion Jude. . Referring Provider: Ki Campbell [address] [facility] [address], [place], [address]. tel:[phone] [facility], [place], [place], [address], [place] tel:[phone] [place] No Information 1 Lion Jude. . Referring Provider: Ki Campbell, [address], [place], [address]. tel:[phone] [address], [place], [address], [place] tel:[phone] [place] No Information 1 Lion Jude. . Referring Provider: Ki Campbell, [address], [place], [address]. tel:[phone], [place], [address], [place] tel:[phone] [place] No Information 1 Lion Jude. . Referring Provider: Ki Campbell, [address] [facility] [address], [place], [address]. tel:[phone], [place], [address], [place] tel:[phone] [place] No Information 1 Karissa Goodman. [address] [facility], [address], [place], [address], [place]. tel:[phone] Referring Provider: Ki Campbell, [address] [facility] [address], [place], [address]. tel:[phone], [place], [place], [address], [place] tel:[phone] [place] No Information 1 Lion Jude. . Referring Provider: Ki Campbell [address] [facility] [address], [place], [address]. tel:[phone] [facility] [address] [place], [place] [address], [place], [place], [address], [place] tel:[phone] [place] No Information 1 Lion Jude. . Referring Provider: Ki Campbell [address], [place], [address]. tel:[phone] [place] [address], [facility], [place], [place], [address], [place] tel:[phone] [place] No Information September-2 - 1 Lion Jude. . Referring Provider: Ki Campbell, [address], [place], [address]. tel:[phone] [place] [address], [address] [place], [place] [address], [place], [address], [place] tel:[phone] [place] No Information 1 Lion Jude. . Referring Provider: Ki Campbell, [address], [place], [address]. tel:[phone] [place] [address], [address] [place] [address]e [address], [place], [address], [place] tel:[phone] [place] No Information September-05 27- 1 Lion Jude. . Referring Provider: Ki Campbell, [address], [place], [address]. tel:[phone] [place], [place] [address] [place], [place] [address], [place], [address], [place] tel:[phone] [place] No Information September- 0- 1 Lion Jude. . Referring Provider: Ki Campbell [address] [facility] [address], [place], [address]. tel:[phone] [place] [address], [address] [place], [place] [address], [place], [place], [address], [place] tel:[phone] [place] No Information September-0 - 1 Lion Jude. . Referring Provider: Ki Campbell, [address] [facility] [address], [place], [address]. tel:[phone] [place] [address] [facility], [place], [place], [address], [place] tel:[phone] [place] No Information September-0 1 Lion Jude. . Referring Provider: Alison Gupta [address] [facility] [address], [place], [address]. tel:[phone] [address], [place], [place], [address], [place] tel:[phone] [place] No Information 0 1 Lion Jude. . Referring Provider: Brenda Gupta[address] [facility] [address] [facility] [address], [place], [address]. tel:[phone] [place] [address] [address], [place], [address], [place] tel:[phone] [place] No Information Aug-3 0 1 Lion Jude. . Referring Provider: Brenda Gupta[address] [facility] [address], [place], [address]. tel:[phone] [place] [address]e [address], [place], [address], [place] tel:[phone] [place] No Information Aug-2 1 Lion Jude. . Referring Provider: Alison Gupta [address] [facility] [address], [place], [address]. tel:[phone] [place] [address] [address], [place], [place], [address], [place] tel:[phone] [place] No Information Aug-2 1 Lion Jude. . Referring Provider: Brenda Gupta[address] [facility] [address], [place], [address]. tel:[phone] [place], [place] [address], [place], [place], [address], [place] tel:[phone] [place] No Information Aug-2 1 Lion Jude. . Referring Provider: Alison Gupta [address] [facility] [address], [place], [address]. tel:[phone] [address], [place], [place], [address], [place] tel:[phone] [place] No Information Aug-2 1 Lion Jude. . Referring Provider: Ki Campbell, [address] [facility] [address], [place], [address]. tel:[phone] [address], [place], [place], [address], [place] tel:[phone] [place] No Information 1 Lion Jude. . Referring Provider: Ki Campbell, [address], [place], [address]. tel:[phone] [address], [place], [place], [address], [place] tel:[phone] [place] No Information Aug- 1 Lionel Rasmussen. . Referring Provider: Ki Campbell, [address], [place], [address]. tel:[phone] [address], [place], [place], [address], [place] tel:[phone] [place] No Information 1 Long Beltrán. [address] [facility], [address], [place], [address], [place]. tel:[phone] Referring Provider: Ki Campbell, [address] [facility] [address], [place], [address]. tel:[phone], [place], [place], [address], [place] tel:[phone] [place] No Information 1 Long Beltrán. [address] [facility], [address], [place], [address], [place]. tel:[phone] Referring Provider: Ki Campbell, [address] [facility] [address], [place], [address]. tel:[phone] [place] [address] [address] [facility], [place], [place], [address], [place] tel:[phone] [place] No Information 1 Lion Jude. . Referring Provider: Ki Campbell, [address] [facility] [address], [place], [address]. tel:[phone] [place] [address] [address] [facility], [place], [place], [address], [place] tel:[phone] [place] No Information 0 Lion Jude. . Referring Provider: Ki Campbell, [address] [facility] [address], [place], [address]. tel:[phone] [place] [address] [place] [address] 300, [place], [address], [place] tel:[phone] [place] No Information 0 Lion Jude. . Referring Provider: Ki Campbell, [address] [facility] [address], [place], [address]. tel:[phone] [place] [address] [facility], [place], [place], [address], tel:[phone] [place] No Information 0 Lion Jude. . Referring Provider: Ki Campbell [address] [facility] [address], [place], [address]. tel:[phone] [place] [address] [address] [facility] [address], [place], [place], [address], [place] tel:[phone] [place] No Information 0 [place] Kimmie. . Referring Provider: Ki Campbell [address] [facility] [address], [place], [address]. tel:[phone] [facility] [facility] [address], [place], [place], [address], [place] tel:[phone] [place] No Information 0 Lion Jude. . Referring Provider: Brenda Gupta[address] [facility] [address], [place], [address]. tel:[phone] [facility], [address] [facility], [place], [place], [address], [place] tel:[phone] [place] No Information 0 [place] Kimmie. . Referring Provider: Ki Campbell, [address], [place], [address]. tel:[phone] [place] [address] [place], [place] [address], [place], [place], [address], [place] tel:[phone] [place] No Information 0 Lion Jude. . Referring Provider: Brenda Gupta[address] [facility] [address], [place], [address]. tel:[phone] [place] [address] [address] [facility], [place], [place], [address], [place] tel:[phone] [place] No Information 0 [place] Kimmie. . Referring Provider: Brenda Gupta[address] [facility] [address], [place], [address]. tel:[phone] [place] [address] [place], [place] [address], [place], [place], [address], [place] tel:[phone] [place] No Information 0 [place] Kimmie. . Referring Provider: Brenda Gupta[address] [facility] [address], [place], [address]. tel:[phone] [place] [address], [place], [address], [place] tel:[phone] [place] No Information 0 Lion Jude. . Referring Provider: Brenda Gupta[address] [facility] [address] [facility] [address], [place], [address]. tel:[phone] [facility] [address], [place], [place], [address], [place] tel:[phone] [place] No Information 0 Ayad Roque. . [facility], [address], [place], [place], [address], [place] tel:[phone] [place] No Information 0 Karissa Goodman. [address] [facility], [address], [place], [address], [place]. tel:[phone] Referring Provider: Ki Campbell, [address] [facility] [address], [place], [address]. tel:[phone] [facility] [facility] [address], [place], [place], [address], [place] tel:[phone] [place] No Information 9 [place] Kimmie. . Referring Provider: Ki Campbell [address] [facility] [address], [place], [address]. tel:[phone] [facility] [address] [facility], [place], [place], [address], [place] tel:[phone] [place] No Information Apr- 9 [place]t Kimmie. . Referring Provider: Ki Campbell [address] [facility] [address], [place], [address]. tel:[phone] [facility] [address], [place], [place], [address], [place] tel:[phone] [place] No Information Apr-2 9 [place] Kimmie. . Referring Provider: Ki Campbell [address], [place], [address]. tel:[phone] [facility] [facility], [place], [place], [address], [place] tel:[phone] [place] No Information 9 [place] Kimmie. . Referring Provider: Ki Campbell, [address] [facility] [address], [place], [address]. tel:[phone] [facility], [address] [place], [place] [address], [place], [place], [address], [place] tel:[phone] [place] No Information 9 [place] Michelle. . Referring Provider: Ki Campbell, [address] [facility] [address], [place], [address]. tel:[phone] [facility], [address] [place] [address] 300, [place], [place], [address], [place] tel:[phone] [place] No Information 9 Lionel Rasmussen. . Referring Provider: Sotero Rojo, [address] [place] [address] [address], [place], [address]. tel:[phone] [facility], [address] [place] [address]e 300, [place], [place], [address], [place] tel:[phone] [place] No Information 9 Lionel Rasmussen. . Referring Provider: Sotero Rojo, [address] [place] [address] [address], [place], [address]. tel:[phone] [facility] [address] [place] [address] 300, [place], [place], [address], [place] tel:[phone] [place] No Information 9 Karissa Goodman. [address] [facility], [address], [place], [address], [place]. tel:[phone] Referring Provider: Sotero Rojo [address] [place] [address] [address], [place], [address]. tel:[phone] [facility], [address] [facility] [address], [place], [place], [address], [place] tel:[phone] [place] No Information 9 Lionel Rasmussen. . Referring Provider: Sotero Rojo, [address] [facility] [address], [place], [address]. tel:[phone] [facility] [facility], [place], [place], [address], [place] tel:[phone] [place] No Information 9 Lionel Rasmussen. . Referring Provider: Sotero Rojo, [address] [place] [address] [address], [place], [address]. tel:[phone] [facility] [facility], [place], [place], [address], [place] tel:[phone] [place] No Information 9 Karissa Goodman. [address] [facility], [address], [place], [address], [place]. tel:[phone] Referring Provider: Sotero Rojo, [address] [place] [address] [address], [place], [address]. tel:[phone] [facility] [facility], [place], [place], [address], [place] tel:[phone] [place] Oth symptoms and signs involving the musculoskelet al systemOther general symptoms and signsCivilian activity done for income or payPain in right knee 9 Lionel Rasmussen. . Referring Provider: Sotero Rojo, [address] [facility] [address], [place], [address]. tel:[phone] [facility] [facility], [place], [place], [address], [place] tel:[phone] [place] Oth symptoms and signs involving the musculoskelet al systemOther general symptoms and signsCivilian activity done for income or payPain in right knee 9 Lionel Rasmussen. . Referring Provider: Sotero Rooj, [address] [place] [address] [address], [place], [address]. tel:[phone] [facility] [facility], [place], [place], [address], [place] tel:[phone] [place] Oth symptoms and signs involving the musculoskelet al systemOther general symptoms and signsCivilian activity done for income or payPain in right knee 9 Karissa Goodman. [address] [place] [address], [address] [place] [address], [facility], . tel:[phone] Referring Provider: Sotero Rojo, [address] [place] [address] Suite [facility], [place], [place], [facility]. tel:[phone], [address], [place] tel:[phone] [place] Oth symptoms and signs involving the musculoskelet al systemOther general symptoms and signsCivilian activity done for income or payPain in right knee 2- 9 Lionel Rasmussen. . Referring Provider: Sotero Rojo, [address] [place] [address] [address] [facility], [place], [place], [facility]. tel:[phone] [facility] [address] [place] [address], [id number], [place] tel:[phone] [place] Oth symptoms and signs involving the musculoskelet al systemOther general symptoms and signsCivilian activity done for income or payPain in right knee 0- 9 Karissa Goodman. [address] [place] [address], [address], [place], [facility], [place]. tel:[phone] Referring Provider: Sotero Rojo [address] [place] [address] Suite [facility], [place], [place], [facility]. tel:[phone] [address], [place], [place], [address], [place] tel:[phone] [place] Oth symptoms and signs involving the musculoskelet al systemOther general symptoms and signsCivilian activity done for income or payPain in right knee 7 9 Karissa Goodman. [address] [place] [address], [address], [place], [facility], [place]. tel:[phone] Referring Provider: Sotero Rojo [address] [place] [address] [address], [place], [address]. tel:[phone] [place] [address], [address], tel:[phone] [place] Oth symptoms and signs involving the musculoskelet al systemOther general symptoms and signsCivilian activity done for income or payPain in right knee 9 Lionel Rasmussen. . Referring Provider: Sotero Rojo, [address] [facility] [address] [facility], [place], [address]. tel:[phone], [address], tel:[phone] [place] Oth symptoms and signs involving the musculoskelet al systemOther general symptoms and signsCivilian activity done for income or payPain in right knee 9 Lionel Rasmussen. . Referring Provider: Sotero Rojo, [address] [place] [address] [place] [address], [address]. tel:[phone] [facility] [address], [address], tel:[phone] [place] Oth symptoms and signs involving the musculoskelet al systemOther general symptoms and signsCivilian activity done for income or payPain in right knee 9 Karissa Goodman. [address] [facility], [facility] [address], [place], [address], . tel:[phone] Referring Provider: Sotero Rojo [address] [facility] [address] [facility], [place], [address]. tel:[phone] [facility], [address], tel:[phone] [place] Oth symptoms and signs involving the musculoskelet al systemOther general symptoms and signsCivilian activity done for income or payPain in right knee 9 Lionel Rasmussen. . Referring Provider: Sotero Rojo [address] [facility] [address], [place], [address]. tel:[phone] [facility] [address], [address], tel:[phone] [place] Stiffness of right knee, not elsewhere classifiedOth symptoms and signs involving the musculoskelet al systemPain in right kneeCivilian activity done for income or pay 9 Ayad Roque. . Referring Provider: Sotero Rojo, [address] [facility] [address], [place], [address]. tel:[phone] [facility] [address] [place] [address], [place], [place], [address], tel:[phone] [place] Stiffness of right knee, not elsewhere classifiedOth symptoms and signs involving the musculoskelet al systemPain in right kneeCivilian activity done for income or pay 9 Ayad Roque. . Referring Provider: Sotero Rojo, [address] [place] [address] [address] [facility], [place], [place], [facility]. tel:[phone] [facility] [address] [place] [address], [id number], tel:[phone] [place] Stiffness of right knee, not elsewhere classifiedOth symptoms and signs involving the musculoskelet al systemPain in right kneeCivilian activity done for income or pay 9 Karissa Goodman. [address] [facility], [address], [place], [facility], . tel:[phone] Referring Provider: Sotero Rojo [address] [place] [address] [address], [place], [address]. tel:[phone] [facility], [id number], tel:[phone] [place] Stiffness of right knee, not elsewhere classifiedOth symptoms and signs involving the musculoskelet al systemPain in right kneeCivilian activity done for income or pay 9 Lionel Rasmussen. . Referring Provider: Sotero Rjoo [address] [facility] [address], [place], [address]. tel:[phone] [facility] [place] [address] [address], [place], [place], [address], tel:[phone] [place] Stiffness of right knee, not elsewhere classifiedOth symptoms and signs involving the musculoskelet al systemPain in right kneeCivilian activity done for income or pay 2 9- 9 Aayd Roque. . Referring Provider: Sotero Rojo, [address] [facility] [address], [place], [address]. tel:[phone] [facility] [place] [address] [address], [place], [place], [address], [place] tel:[phone] [place] Stiffness of right knee, not elsewhere classifiedOth symptoms and signs involving the musculoskelet al systemPain in right kneeCivilian activity done for income or pay 2 3- 9 Tami Martinez. . Referring Provider: Sotero Rojo, [address] [facility] [address], [place], [address]. tel:[phone] [facility] [address], [place], [place], [address], [place] tel:[phone] [place] Stiffness of right knee, not elsewhere classifiedOth symptoms and signs involving the musculoskelet al systemPain in right kneeCivilian activity done for income or pay 1 2- 9 Ayad Roque. . Referring Provider: Sotero Rojo, [address] [facility] [address], [place], [address]. tel:[phone] [facility] [place] [address], [place], [place], [address], [place] tel:[phone] [place] Stiffness of right knee, not elsewhere classifiedOth symptoms and signs involving the musculoskelet al systemPain in right kneeCivilian activity done for income or pay Aug-0 8-201 9 Karissa Goodman. [address] [facility], [address], [place], [address], [place]. tel:[phone] Referring Provider: Sotero Rojo, [address] [facility] [address], [place], [address]. tel:[phone] [facility] [address], [place], [place], [address], [place] tel:[phone] Cecil Stiffness of right knee, not elsewhere classifiedOth symptoms and signs involving the musculoskelet al systemPain in right kneeCivilian activity done for income or pay Aug-0 9 Karissa Goodman. [address] [facility], [address], [place], [place], [facility], [place]. tel:[phone] Referring Provider: Sotero Rojo, [address] [facility] [address], [place], [address]. tel:[phone] [facility] [address], [place], [place], [address], [place] tel:[phone] Cecil Stiffness of right knee, not elsewhere classifiedOth symptoms and signs involving the musculoskelet al systemPain in right kneeCivilian activity done for income or pay Aug-0 9 Karissa Goodman. [address] [facility], [address], [place], [address], [place]. tel:[phone] Referring Provider: Sotero Rojo, [address] [facility] [address], [place], [address]. tel:[phone] [facility] [address], [place], [place], [address], [place] tel:[phone] Veto Stiffness of right knee, not elsewhere classifiedOth symptoms and signs involving the musculoskelet al systemPain in right kneeCivilian activity done for income or pay Jul-2 9 Ayad Roque. . Referring Provider: Sotero Rojo, [address] [facility] [address], [place], [address]. tel:[phone] [facility], [place], [place], [address], [place] tel:[phone] Veto Stiffness of right knee, not elsewhere classifiedOth symptoms and signs involving the musculoskelet al systemPain in right kneeCivilian activity done for income or pay Jul-2 6 9 Karissa Goodman. [address] [facility], [address], [place], [address], [place]. tel:[phone] Referring Provider: Sotero Rojo, [address] [facility] [address], [place], [address]. tel:[phone] [facility] [address], [place], [place], [address], [place] tel:[phone] Cecil Stiffness of right knee, not elsewhere classifiedOth symptoms and signs involving the musculoskelet al systemPain in right kneeCivilian activity done for income or pay Jul-1 - 9 Karissa Goodman. [address] [facility], [address], [place], [address], [place]. tel:[phone] Referring Provider: Travis Woodard, [address] [facility] [address], [place], [address]. tel:[phone] [facility] [address], [place], [place], [address], [place] tel:[phone] Cecil Stiffness of right knee, not elsewhere classifiedOth symptoms and signs involving the musculoskelet al systemPain in right kneeCivilian activity done for income or pay Jul-1 9 Ayad Roque. . Referring Provider: Travis Woodard, [address] [facility] [address], [place], [address]. tel:[phone] [facility] [address], [place], [place], [address], [place] tel:[phone] Veto Stiffness of right knee, not elsewhere classifiedOth symptoms and signs involving the musculoskelet al systemPain in right kneeCivilian activity done for income or pay Mar-1 5- 9 Lion Jude. . Referring Provider: Travis Woodard, [address] [facility] [address], [place], [address]. tel:[phone] [facility], [address], [place], [place], [address], [place] tel:[phone] Veto Stiffness of right knee, not elsewhere classifiedOth symptoms and signs involving the musculoskelet al systemPain in right kneeCivilian activity done for income or pay Mar-1 1-201 9 Karissa Goodman. [address] [facility], [address], [place], [address], [place]. tel:[phone] Referring Provider: Travis Woodard, [address], [place], [address]. tel:[phone] [facility] [address], [place], [place], [address], [place] tel:[phone] Cecil Stiffness of right knee, not elsewhere classifiedOth symptoms and signs involving the musculoskelet al systemPain in right kneeCivilian activity done for income or pay Mar-0 7 9 Karissa Goodman. [address] [facility], [address], [place], [address], [place]. tel:[phone] Referring Provider: Travis Woodard, [address] [facility] [address], [place], [address]. tel:[phone] [facility], [place], [place], [address], [place] tel:[phone] Cecil Stiffness of right knee, not elsewhere classifiedOth symptoms and signs involving the musculoskelet al systemPain in right kneeCivilian activity done for income or pay Mar-0 5-201 9 Lionel Hoang . Referring Provider: Travis Woodard, [address] [facility] [address], [place], [address]. tel:[phone] [facility], [place], [place], [address], [place] tel:[phone] Veto Oth symptoms and signs involving the musculoskelet al systemStiffne ss of right knee, not elsewhere classifiedPai n in right kneeCivilian activity done for income or paySprain of anterior cruciate ligament of right knee, subsUnsp tear of unsp meniscus, current injury, right knee, subs 8 Lionel Rasmussen. . Referring Provider: Sotero Rojo, [address] [facility] [address], [place], [address]. tel:[phone] [facility], [place], [place], [address], [place] tel:[phone] Veto Oth symptoms and signs involving the musculoskelet al systemStiffne ss of right knee, not elsewhere classifiedPai n in right kneeCivilian activity done for income or paySprain of anterior cruciate ligament of right knee, subsUnsp tear of unsp meniscus, current injury, right knee, subs 8 Karissa Goodman. [address] [place] [address], [address], [place], [facility], . tel:[phone] Referring Provider: Sotero Rojo, [address] [facility] [address], [place], [address]. tel:[phone] [facility] [address] [address], [place], [place], [address], [place] tel:[phone] Cecil Oth symptoms and signs involving the musculoskelet al systemStiffne ss of right knee, not elsewhere classifiedPai n in right kneeCivilian activity done for income or paySprain of anterior cruciate ligament of right knee, subsUnsp tear of unsp meniscus, current injury, right knee, subs 8 Ayad Roque. . Referring Provider: Sotero Rojo, [address] [facility] [address], [place], [address]. tel:[phone] [facility], [place], [place], [address], [place] tel:[phone] Veto Oth symptoms and signs involving the musculoskelet al systemStiffne ss of right knee, not elsewhere classifiedPai n in right kneeCivilian activity done for income or paySprain of anterior cruciate ligament of right knee, subsUnsp tear of unsp meniscus, current injury, right knee, subs 8 Karissa Goodman. [address] [facility], [address], [place], [place], [facility], . tel:[phone] Referring Provider: Sotero Rojo, [address] [facility] [address], [place], [address]. tel:[phone] [facility] [address], [place], [place], [address], [place] tel:[phone] Veto Oth symptoms and signs involving the musculoskelet al systemStiffne ss of right knee, not elsewhere classifiedPai n in right kneeCivilian activity done for income or paySprain of anterior cruciate ligament of right knee, subsUnsp tear of unsp meniscus, current injury, right knee, subs 8 Karissa Goodman. [address] [place] [address], [address], [place], [place], [facility], [place]. tel:[phone] Referring Provider: Sotero Rojo, [address] [facility] [address], [place], [address]. tel:[phone] [facility] [address], [place], [place], [address], [place] tel:[phone] Cecil Oth symptoms and signs involving the musculoskelet al systemStiffne ss of right knee, not elsewhere classifiedPai n in right kneeCivilian activity done for income or paySprain of anterior cruciate ligament of right knee, subsUnsp tear of unsp meniscus, current injury, right knee, subs 8 Lionel Hoang . Referring Provider: Sotero Rojo, [address] [facility] [address], [place], [address]. tel:[phone] [facility], [place], [place], [address], [place] tel:[phone] Cecil Oth symptoms and signs involving the musculoskelet al systemStiffne ss of right knee, not elsewhere classifiedPai n in right kneeCivilian activity done for income or paySprain of anterior cruciate ligament of right knee, subsUnsp tear of unsp meniscus, current injury, right knee, subs 8 Karissa Goodman. [address] [facility], [address], [place], [place], [facility], [place]. tel:[phone] Referring Provider: Sotero Rojo, [address] [facility] [address], [place], [address]. tel:[phone] [facility], [place], [place], [address], [place] tel:[phone] Veto Oth symptoms and signs involving the musculoskelet al systemStiffne ss of right knee, not elsewhere classifiedPai n in right kneeCivilian activity done for income or paySprain of anterior cruciate ligament of right knee, subsUnsp tear of unsp meniscus, current injury, right knee, subs 8 Ayad Roque. . Referring Provider: Sotero Rojo, [address] [facility] [address], [place], [address]. tel:[phone] [facility] [address], [place], [place], [address], [place] tel:[phone] Veto Oth symptoms and signs involving the musculoskelet al systemStiffne ss of right knee, not elsewhere classifiedPai n in right kneeCivilian activity done for income or paySprain of anterior cruciate ligament of right knee, subsUnsp tear of unsp meniscus, current injury, right knee, subs 8 Karissa Goodman. [address] [facility], [address], [place], [address], [place]. tel:[phone] Referring Provider: Sotero Rojo [address] [facility] [address], [place], [address]. tel:[phone] [facility] [address], [place], [place], [address], [place] tel:[phone] Veto Oth symptoms and signs involving the musculoskelet al systemStiffne ss of right knee, not elsewhere classifiedPai n in right kneeCivilian activity done for income or paySprain of anterior cruciate ligament of right knee, subsUnsp tear of unsp meniscus, current injury, right knee, subs Mar- 8 Lion Jude. . Referring Provider: Sotero Rojo [address] [facility] [address], [place], [address]. tel:[phone] [facility], [address], [place], [place], [address], [place] tel:[phone] Veto Pain in right knee 8 Lion Jude. . Referring Provider: Sotero Rojo [address] [facility] [address], [place], [address]. tel:[phone] [facility], [address], [place], [place], [address], [place] tel:[phone] Cecil Pain in right knee 8 Lion Jude. . Referring Provider: Sotero Rojo [address] [facility] [address], [place], [address]. tel:[phone] [facility] [address], [place], [place], [address], [place] tel:[phone] Cecil Oth symptoms and signs involving the musculoskelet al systemStiffne ss of right knee, not elsewhere classifiedPai n in right kneeCivilian activity done for income or paySprain of anterior cruciate ligament of right knee, subsUnsp tear of unsp meniscus, current injury, right knee, subs Nov- 0-201 8 Karissa Goodman. [address] [facility], [address], [place], [address], [place]. tel:[phone] Referring Provider: Sotero Rojo [address] [facility] [address], [place], [address]. tel:[phone] [facility], [place], [place], [address], [place] tel:[phone] Cecil Pain in right knee Nov 9-201 8 Lionmilagros Roque. . Referring Provider: Sotero Rojo, [address] [facility] [address], [place], [address]. tel:[phone] [facility], [place], [place], [address], [place] tel:[phone] Cecil Oth symptoms and signs involving the musculoskelet al systemStiffne ss of right knee, not elsewhere classifiedPai n in right kneeCivilian activity done for income or paySprain of anterior cruciate ligament of right knee, subsUnsp tear of unsp meniscus, current injury, right knee, subs 8 Lionel Rasmussen. . Referring Provider: Sotero Rojo, [address] [facility] [address], [place], [address]. tel:[phone] [facility], [place], [place], [address], [place] tel:[phone] Cecil Pain in right kneeEffusion, right kneeStiffness of right knee, not elsewhere classifiedSpr ain of anterior cruciate ligament of right knee, subsUnsp tear of unsp meniscus, current injury, right knee, subsOther specified postprocedura l states - 8 Lion Jude. . Referring Provider: Sotero Rojo, [address] [facility] [address], [place], [address]. tel:[phone] [facility], [place], [place], [address], [place] tel:[phone] Veto Pain in right kneeEffusion, right kneeStiffness of right knee, not elsewhere classifiedSpr ain of anterior cruciate ligament of right knee, subsUnsp tear of unsp meniscus, current injury, right knee, subsOther specified postprocedura l states 8 [place] Michelle. . Referring Provider: Sotero Rojo, [address] [facility] [address], [place], [address]. tel:[phone] [facility], [place], [place], [address], [place] tel:[phone] Cecil Pain in right kneeEffusion, right kneeStiffness of right knee, not elsewhere classifiedSpr ain of anterior cruciate ligament of right knee, subsUnsp tear of unsp meniscus, current injury, right knee, subsOther specified postprocedura l states 8 Karissa Goodman. [address] [facility], [address], [place], [address], [place]. tel:[phone] Referring Provider: Sotero Rojo, [address] [facility] [address], [place], [address]. tel:[phone] [facility] [address], [place], [place], [address], [place] tel:[phone] Cecil Pain in right kneeEffusion, right kneeStiffness of right knee, not elsewhere classifiedSpr ain of anterior cruciate ligament of right knee, subsUnsp tear of unsp meniscus, current injury, right knee, subsOther specified postprocedura l states 8 Tami Martinez. . Referring Provider: Sotero Rojo, [address] [facility] [address], [place], [address]. tel:[phone] [facility], [place], [place], [address], [place] tel:[phone] Veto Pain in right kneeEffusion, right kneeStiffness of right knee, not elsewhere classifiedSpr ain of anterior cruciate ligament of right knee, subsUnsp tear of unsp meniscus, current injury, right knee, subsOther specified postprocedura l states 8 Ayad Roque. . Referring Provider: Sotero Rojo, [address] [facility] [address], [place], [address]. tel:[phone] [facility], [place], [place], [address], [place] tel:[phone] Cecil Pain in right kneeEffusion, right kneeStiffness of right knee, not elsewhere classifiedSpr ain of anterior cruciate ligament of right knee, subsUnsp tear of unsp meniscus, current injury, right knee, subsOther specified postprocedura l states 8 Lion Jude. . Referring Provider: Sotero Rojo [address] [facility] [address], [place], [address]. tel:[phone] [facility], [address], [place], [place], [address], [place] tel:[phone] Veto Pain in right kneeEffusion, right kneeStiffness of right knee, not elsewhere classifiedSpr ain of anterior cruciate ligament of right knee, subsUnsp tear of unsp meniscus, current injury, right knee, subsOther specified postprocedura l states 8 Lion Jude. . Referring Provider: Sotero Rojo [address] [address], [place], [address]. tel:[phone] [facility], [place], [place], [address], [place] tel:[phone] Cecil Pain in right kneeEffusion, right kneeStiffness of right knee, not elsewhere classifiedSpr ain of anterior cruciate ligament of right knee, subsUnsp tear of unsp meniscus, current injury, right knee, subsOther specified postprocedura l states 8 Lion Jude. . Referring Provider: Sotero Rojo [address] [facility] [address], [place], [address]. tel:[phone] [facility], [place], [place], [address], [place] tel:[phone] Veto Pain in right kneeEffusion, right kneeStiffness of right knee, not elsewhere classifiedSpr ain of anterior cruciate ligament of right knee, subsUnsp tear of unsp meniscus, current injury, right knee, subsOther specified postprocedura l states 8 Lion Jude. . Referring Provider: Sotero Rojo [address] [facility] [address], [place], [address]. tel:[phone] [facility], [place], [place], [address], [place] tel:[phone] Evto Pain in right kneeEffusion, right kneeStiffness of right knee, not elsewhere classifiedSpr ain of anterior cruciate ligament of right knee, subsUnsp tear of unsp meniscus, current injury, right knee, subsOther specified postprocedura l states 6- 8 Karissa Goodman. [address] [facility], [address], [place], [address], [place]. tel:[phone] Referring Provider: Sotero Rojo, [address] [facility] [address], [place], [address]. tel:[phone] [facility], [place], [place], [address], [place] tel:[phone] Cecil Pain in right kneeEffusion, right kneeStiffness of right knee, not elsewhere classifiedSpr ain of anterior cruciate ligament of right knee, subsUnsp tear of unsp meniscus, current injury, right knee, subsOther specified postprocedura l states 2-201 8 Lion Jude. . Referring Provider: Sotero Rojo, [address] [facility] [address], [place], [address]. tel:[phone] [facility], [place], [place], [address], [place] tel:[phone] Veto Pain in right kneeEffusion, right kneeStiffness of right knee, not elsewhere classifiedSpr ain of anterior cruciate ligament of right knee, subsUnsp tear of unsp meniscus, current injury, right knee, subsOther specified postprocedura l states 0-201 8 Lion Jude. . Referring Provider: Sotero Rojo, [address] [facility] [address], [place], [address]. tel:[phone] [facility], [place], [place], [address], [place] tel:[phone] Cecil Pain in right kneeEffusion, right kneeStiffness of right knee, not elsewhere classifiedSpr ain of anterior cruciate ligament of right knee, subsUnsp tear of unsp meniscus, current injury, right knee, subsOther specified postprocedura l states Oct-0 8-201 8 Lion Jude. . Referring Provider: Sotero Rojo, [address] [facility] [address], [place], [address]. tel:[phone] [facility], [address], [place], [place], [address], [place] tel:[phone] Cecil Pain in right kneeEffusion, right kneeStiffness of right knee, not elsewhere classifiedSpr ain of anterior cruciate ligament of right knee, subsUnsp tear of unsp meniscus, current injury, right knee, subsOther specified postprocedura l states Oct-0 5-201 8 Lion Jude. . Referring Provider: Sotero Rojo, [address] [facility] [address], [place], [address]. tel:[phone] [facility], [address], [place], [place], [address], [place] tel:[phone] Veto Pain in right kneeEffusion, right kneeStiffness of right knee, not elsewhere classifiedSpr ain of anterior cruciate ligament of right knee, subsUnsp tear of unsp meniscus, current injury, right knee, subsOther specified postprocedura l states Feb-0 3-201 8 Lion Jude. . Referring Provider: Sotero Rojo, [address] [facility] [address], [place], [address]. tel:[phone] [facility], [address], [place], [place], [address], [place] tel:[phone] Veto Pain in right kneeEffusion, right kneeStiffness of right knee, not elsewhere classifiedSpr ain of anterior cruciate ligament of right knee, subsUnsp tear of unsp meniscus, current injury, right knee, subsOther specified postprocedura l states Oct-0 1-201 8 Lion Jude. . Referring Provider: Sotero Rojo, [address] [facility] [address], [place], [address]. tel:[phone] [facility] [address], [place], [place], [address], [place] tel:[phone] Veto Pain in right kneeEffusion, right kneeStiffness of right knee, not elsewhere classifiedSpr ain of anterior cruciate ligament of right knee, subsUnsp tear of unsp meniscus, current injury, right knee, subsOther specified postprocedura l states Sep-2 8-201 8 Lion Jude. . Referring Provider: Sotero Rojo, [address] [facility] [address], [place], [address]. tel:[phone] [facility] [address], [place], [place], [address], [place] tel:[phone] Veto Pain in right kneeEffusion, right kneeStiffness of right knee, not elsewhere classifiedSpr ain of anterior cruciate ligament of right knee, subsUnsp tear of unsp meniscus, current injury, right knee, subsOther specified postprocedura l states Sep-2 6-201 8 Lion Jude. . Referring Provider: Sotero Rojo, [address] [facility] [address], [place], [address]. tel:[phone] [facility], [place], [place], [address], [place] tel:[phone] Cecil Pain in right kneeEffusion, right kneeStiffness of right knee, not elsewhere classifiedSpr ain of anterior cruciate ligament of right knee, subsUnsp tear of unsp meniscus, current injury, right knee, subsOther specified postprocedura l states Sep-2 4-201 8 Lion Jude. . Referring Provider: Sotero Rojo, [address] [facility] [address], [place], [address]. tel:[phone] [facility], [place], [place], [address], [place] tel:[phone] Cecil Pain in right kneeEffusion, right kneeStiffness of right knee, not elsewhere classifiedSpr ain of anterior cruciate ligament of right knee, subsUnsp tear of unsp meniscus, current injury, right knee, subsOther specified postprocedura l states Sep- 8 Karissa Goodman. [address] [facility], [address], [place], [place], [facility], [place]. tel:[phone] Referring Provider: Sotero Rojo, [address] [facility] [address], [place], [address]. tel:[phone] [facility], [place], [place], [address], [place] tel:[phone] Cecil Pain in right kneeEffusion, right kneeStiffness of right knee, not elsewhere classifiedSpr ain of anterior cruciate ligament of right knee, subsUnsp tear of unsp meniscus, current injury, right knee, subsOther specified postprocedura l states Sep- 8 [place] Michelle. . Referring Provider: Sotero Rojo, [address] [facility] [address], [place], [address]. tel:[phone] [facility], [place], [place], [id number], [place] tel:[phone] Cecil Pain in right kneeEffusion, right kneeStiffness of right knee, not elsewhere classifiedSpr ain of anterior cruciate ligament of right knee, subsUnsp tear of unsp meniscus, current injury, right knee, subsOther specified postprocedura l states Sep- 8 [place] Michelle. . Referring Provider: Sotero Rojo, [address] [facility] [address], [place], [address]. tel:[phone] [facility], [place], [place], [id number], [place] tel:[phone] Veto Pain in right kneeEffusion, right kneeStiffness of right knee, not elsewhere classifiedSpr ain of anterior cruciate ligament of right knee, subsUnsp tear of unsp meniscus, current injury, right knee, subsOther specified postprocedura l states Sep- 8 Ayad Roque. . Referring Provider: Sotero Rojo, [address] [facility] [address], [place], [address]. tel:[phone] [facility] [address], [place], [place], [id number], [place] tel:[phone] Veto Pain in right kneeEffusion, right kneeStiffness of right knee, not elsewhere classifiedSpr ain of anterior cruciate ligament of right knee, subsUnsp tear of unsp meniscus, current injury, right knee, subsOther specified postprocedura l states Sep-1 2-201 8 Lion Jude. . Referring Provider: Sotero Rojo, [address] [facility] [address], [place], [address]. tel:[phone] [facility], [address], [place], [place], [address], [place] tel:[phone] Veto Pain in right kneeEffusion, right kneeStiffness of right knee, not elsewhere classifiedSpr ain of anterior cruciate ligament of right knee, subsUnsp tear of unsp meniscus, current injury, right knee, subsOther specified postprocedura l states Sep-1 0-201 8 [place] Michelle. . Referring Provider: Sotero Rojo, [address] [address], [place], [address]. tel:[phone] [facility], [address], [place], [place], [address], [place] tel:[phone] Veto Pain in right kneeEffusion, right kneeStiffness of right knee, not elsewhere classifiedSpr ain of anterior cruciate ligament of right knee, subsUnsp tear of unsp meniscus, current injury, right knee, subsOther specified postprocedura l states Sep-0 5-201 8 Lion Jude. . Referring Provider: Sotero Rojo, [address] [facility] [address], [place], [address]. tel:[phone] [facility], [place], [place], [id number], [place] tel:[phone] Veto Pain in right kneeEffusion, right kneeStiffness of right knee, not elsewhere classifiedSpr ain of anterior cruciate ligament of right knee, subsUnsp tear of unsp meniscus, current injury, right knee, subsOther specified postprocedura l states 8 Lion Jude. . Referring Provider: Sotero Rojo, [address] [facility] [address], [place], [address]. tel:[phone] [facility], [place], [place], [address], [place] tel:[phone] Veto Pain in right kneeEffusion, right kneeStiffness of right knee, not elsewhere classifiedSpr ain of anterior cruciate ligament of right knee, subsUnsp tear of unsp meniscus, current injury, right knee, subsOther specified postprocedura l states 8 Lion Jude. . Referring Provider: Sotero Rojo, [address] [facility] [address], [place], [address]. tel:[phone] [facility], [place], [place], [id number], [place] tel:[phone] Cecil Pain in right kneeEffusion, right kneeStiffness of right knee, not elsewhere classifiedSpr ain of anterior cruciate ligament of right knee, subsUnsp tear of unsp meniscus, current injury, right knee, subsOther specified postprocedura l states 8 Tami Martinez. . Referring Provider: Sotreo Rojo, [address] [facility] [address], [place], [address]. tel:[phone] [facility], [place], [place], [address], [place] tel:[phone] Cecil Pain in right kneeEffusion, right kneeStiffness of right knee, not elsewhere classifiedSpr ain of anterior cruciate ligament of right knee, subsUnsp tear of unsp meniscus, current injury, right knee, subsOther specified postprocedura l states 8 Lion Jude. . Referring Provider: Sotero Rojo, [address] [facility] [address], [place], [address]. tel:[phone] [facility], [place], [place], [id number], [place] tel:[phone] Veto Pain in right kneeEffusion, right kneeStiffness of right knee, not elsewhere classifiedSpr ain of anterior cruciate ligament of right knee, subsUnsp tear of unsp meniscus, current injury, right knee, subsOther specified postprocedura l states 8 Long Beltrán. [address] [facility], [address], [place], [address], [place]. tel:[phone] Referring Provider: Sotero Rojo, [address] [facility] [address], [place], [address]. tel:[phone] [facility], [place], [place], [id number], [place] tel:[phone] Veto Pain in right kneeEffusion, right kneeStiffness of right knee, not elsewhere classifiedSpr ain of anterior cruciate ligament of right knee, subsUnsp tear of unsp meniscus, current injury, right knee, subsOther specified postprocedura l states 8 Lion Jude. . Referring Provider: Sotero Rojo, [address] [facility] [address], [place], [address]. tel:[phone] [facility], [place], [place], [address], [place] tel:[phone] Veto Pain in right kneeEffusion, right kneeStiffness of right knee, not elsewhere classifiedSpr ain of anterior cruciate ligament of right knee, subsUnsp tear of unsp meniscus, current injury, right knee, subsOther specified postprocedura l states 0- 8 Lion Jude. . Referring Provider: Sotero Rojo [address] [facility] [address], [place], [address]. tel:[phone] [facility], [place], [place], [address], [place] tel:[phone] Veto Pain in right kneeEffusion, right kneeStiffness of right knee, not elsewhere classifiedSpr ain of anterior cruciate ligament of right knee, subsUnsp tear of unsp meniscus, current injury, right knee, subsOther specified postprocedura l states 8 Lion Jude. . Referring Provider: Sotero Rojo, [address] [address], [place], [address]. tel:[phone] [facility], [place], [place], [address], [place] tel:[phone] Cecil Pain in right kneeEffusion, right kneeStiffness of right knee, not elsewhere classifiedSpr ain of anterior cruciate ligament of right knee, subsUnsp tear of unsp meniscus, current injury, right knee, subsOther specified postprocedura l states 8 Tami Martinez. . Referring Provider: Sotero Rojo, [address] [address], [place], [address]. tel:[phone] [facility], [place], [place], [address], [place] tel:[phone] Veto Pain in right kneeEffusion, right kneeStiffness of right knee, not elsewhere classifiedSpr ain of anterior cruciate ligament of right knee, subsUnsp tear of unsp meniscus, current injury, right knee, subsOther specified postprocedura l states 8 Lion Jude. . Referring Provider: Sotero Rojo, [address] [address], [place], [address]. tel:[phone] [facility], [place], [place], [address], [place] tel:[phone] Veto Pain in right kneeEffusion, right kneeStiffness of right knee, not elsewhere classifiedSpr ain of anterior cruciate ligament of right knee, subsUnsp tear of unsp meniscus, current injury, right knee, subsOther specified postprocedura l states 0-201 8 Lion Jude. . Referring Provider: Sotero Rojo, [address] [facility] [address], [place], [address]. tel:[phone] [facility], [place], [place], [address], [place] tel:[phone] Veto Pain in right kneeEffusion, right kneeStiffness of right knee, not elsewhere classifiedSpr ain of anterior cruciate ligament of right knee, subsUnsp tear of unsp meniscus, current injury, right knee, subsOther specified postprocedura l states 0 8-201 8 Lion Jude. . Referring Provider: Sotero Rojo [address] [address], [place], [address]. tel:[phone] [facility], [address], [place], [place], [address], [place] tel:[phone] Veto Pain in right kneeEffusion, right kneeStiffness of right knee, not elsewhere classifiedSpr ain of anterior cruciate ligament of right knee, subsUnsp tear of unsp meniscus, current injury, right knee, subsOther specified postprocedura l states 0 6-201 8 Lion Jude. . Referring Provider: Sotero Rojo, [address] [facility] [address], [place], [address]. tel:[phone] [facility], [place], [place], [address], [place] tel:[phone] Cecil Pain in right kneeEffusion, right kneeStiffness of right knee, not elsewhere classifiedSpr ain of anterior cruciate ligament of right knee, subsUnsp tear of unsp meniscus, current injury, right knee, subsOther specified postprocedura l states 0 3-201 8 Lion Jude. . Referring Provider: Sotero Rojo [address] [facility] [address], [place], [address]. tel:[phone] [facility], [place], [place], [address], [place] tel:[phone] Veto Pain in right kneeEffusion, right kneeStiffness of right knee, not elsewhere classifiedSpr ain of anterior cruciate ligament of right knee, subsUnsp tear of unsp meniscus, current injury, right knee, subsOther specified postprocedura l states 8 Lion Jude. . Referring Provider: Sotero Rojo, [address] [facility] [address], [place], [address]. tel:[phone] [facility], [place], [place], [address], tel:[phone] Cecil Pain in right kneeEffusion, right kneeStiffness of right knee, not elsewhere classifiedSpr ain of anterior cruciate ligament of right knee, subsUnsp tear of unsp meniscus, current injury, right knee, subsOther specified postprocedura l states 8 Lion Jude. . Referring Provider: Sotero Rojo, [address] [facility] [address], [place], [address]. tel:[phone] [facility], [place], [place], [address], [place] tel:[phone] Cecil Pain in right kneeEffusion, right kneeStiffness of right knee, not elsewhere classifiedSpr ain of anterior cruciate ligament of right knee, subsUnsp tear of unsp meniscus, current injury, right knee, subsOther specified postprocedura l states 8 Lion Jude. . Referring Provider: Sotero Rojo, [address] [facility] [address], [place], [address]. tel:[phone] [facility], [place], [place], [address], [place] tel:[phone] Cecil Pain in right kneeEffusion, right kneeStiffness of right knee, not elsewhere classifiedSpr ain of anterior cruciate ligament of right knee, subsUnsp tear of unsp meniscus, current injury, right knee, subsOther specified postprocedura l states 8 Lion Jude. . Referring Provider: Sotero Rojo [address] [facility] [address], [place], [address]. tel:[phone] [facility], [place], [place], [address], [place] tel:[phone] Veto Pain in right kneeEffusion, right kneeStiffness of right knee, not elsewhere classifiedSpr ain of anterior cruciate ligament of right knee, subsUnsp tear of unsp meniscus, current injury, right knee, subsOther specified postprocedura l states 3-201 8 Lion Jude. . Referring Provider: Sotero Rojo, [address] [facility] [address], [place], [address]. tel:[phone] [facility], [place], [place], [address], [place] tel:[phone] Cecil Pain in right kneeEffusion, right kneeStiffness of right knee, not elsewhere classifiedSpr ain of anterior cruciate ligament of right knee, subsUnsp tear of unsp meniscus, current injury, right knee, subsOther specified postprocedura l states 0-201 8 Lion Jude. . Referring Provider: Sotero Rojo, [address] [facility] [address], [place], [address]. tel:[phone] [facility], [place], [place], [address], [place] tel:[phone] Veto Pain in right kneeEffusion, right kneeStiffness of right knee, not elsewhere classifiedSpr ain of anterior cruciate ligament of right knee, subsUnsp tear of unsp meniscus, current injury, right knee, subsOther specified postprocedura l states 8-201 8 Lion Jude. . Referring Provider: Sotero Rojo [address] [facility] [address], [place], [address]. tel:[phone] [facility], [place], [place], [address], [place] tel:[phone] Cecil Pain in right kneeEffusion, right kneeStiffness of right knee, not elsewhere classifiedSpr ain of anterior cruciate ligament of right knee, subsUnsp tear of unsp meniscus, current injury, right knee, subsOther specified postprocedura l states 8 Lion Jude. . Referring Provider: Sotero Rojo, [address] [facility] [address], [place], [address]. tel:[phone] [facility], [place], [place], [address], [place] tel:[phone] Veto Pain in right kneeEffusion, right kneeStiffness of right knee, not elsewhere classifiedSpr ain of anterior cruciate ligament of right knee, subsUnsp tear of unsp meniscus, current injury, right knee, subsOther specified postprocedura l states 8 Lion Jude. . Referring Provider: Sotero Rojo, [address] [facility] [address], [place], [address]. tel:[phone] [facility], [place], [place], [address], [place] tel:[phone] Cecil Pain in right kneeEffusion, right kneeStiffness of right knee, not elsewhere classifiedSpr ain of anterior cruciate ligament of right knee, subsUnsp tear of unsp meniscus, current injury, right knee, subsOther specified postprocedura l states 0 8 Lion Jude. . Referring Provider: Sotero Rojo, [address] [facility] [address], [place], [address]. tel:[phone] [facility], [place], [place], [id number], [place] tel:[phone] [place] No Information 3 Yahir Horton. [address] [facility], [address], [place], [address], [place]. tel:[phone] Referring Provider: Sylvain Solis, [address], [place], [address]. tel:[phone] [facility], [place], [place], [address], tel:[phone] [place] No Information Dec-2 3-201 3 Yahir Clifford. [address] [place] [address], [address], [place], [facility], . tel:[phone] Referring Provider: Sylvain Solis, [address] [facility], [place], [address]. tel:[phone] [address], [place], [place], [address], tel:[phone] [place] No Information Dec-1 8-201 3 Yahir Clifford. [address] [place] [address], [address], [place], [facility], . tel:[phone] Referring Provider: Sylvain Solis, [address] [facility], [place], [address]. tel:[phone], [id number], tel:[phone] [place] No Information Dec-1 3-201 3 Yahir Clifford. [address] [place] [address], [address], [place], [facility], . tel:[phone] Referring Provider: Sylvain Solis, [address], [place], [address]. tel:[phone], [id number], tel:[phone] [place] No Information Dec-1 0-201 3 Yahir Clifford. [address] [place] [address], [address], [place], [facility], . tel:[phone] Referring Provider: Sylvain Solis, [address] [facility], [place], [address]. tel:[phone] [address], [place], [place], [address], tel:[phone] [place] No Information Dec-0 4-201 3 Yahir Clifford. [address] [place] [address], [facility] [address], [place], [facility], . tel:[phone] Referring Provider: Sylvain Solis, [address], [place], [address]. tel:[phone], [id number], tel:[phone] [place] No Information Apr-0 2-201 3 Yahir Clifford. [address] [place] [address], [facility] [address], [place], [facility], . tel:[phone] Referring Provider: Sylvain Solis, [address] [facility], [place], [address]. tel:[phone], [id number], tel:[phone] [place] No Information Mar-2 6 3 Yahir Clifford. [address] [place] [address], [address], [facility], . tel:[phone] Referring Provider: Sylvain Solis, [address] [facility], [place], [address]. tel:[phone], [id number], tel:[phone] [place] No Information Mar-2 5 3 Yahir Clifford. [address] [place] [address], [address], [facility], . tel:[phone] Referring Provider: Sylvain Solis, [address] [facility], [place], [address]. tel:[phone], [id number], tel:[phone] [place] No Information Mar-2 2-201 3 Yahir Clifford. [address] [place] [address], [facility] [address], [place], [facility], . tel:[phone] Referring Provider: Sylvain Solis, [address], [place], [address]. tel:[phone] [facility] [address], [place], [place], [address], [place] tel:[phone] [place] No Information 3 Yahir Clifford. [address] [place] [address], [address] [place] [address], [facility], . tel:[phone] Referring Provider: Sylvain Solis, [address], [place], [address]. tel:[phone] [facility] [address] [place], [place] [address], [place], [place], [address], [place] tel:[phone] [place] No Information 3 Yahir Clifford. [address] [place] [address], [address], [facility], . tel:[phone] Referring Provider: Sylvain Solis, [address] [facility], [place], [address]. tel:[phone] [facility] [address] [place], [place] [address], [place], [place], [address], [place] tel:[phone] [place] No Information 3 Yahir Clifford. [address] [place] [address], [address] [place] [address], [facility], . tel:[phone] Referring Provider: Sylvain Solis, [address] [facility], [place], [address]. tel:[phone] [facility] [address] [place], [place] [address], [place], [place], [id number], [place] tel:[phone] [place] No Information 3 Yahir Clifford. [address] [place] [address], [facility] [address], [place], [facility], . tel:[phone] Referring Provider: Sylvain Solis, [address], [place], [address]. tel:[phone] [facility] [address] [place], [place] [address], [place], [place], [address], tel:[phone] [place] No Information 3 Yahir Clifford. [address] [place] [address], [facility] [address] [address], . tel:[phone] Referring Provider: Sylvain Solis, [address], [place], [address]. tel:[phone], [id number], tel:[phone] [place] No Information 3 Yahir Clifford. [address] [place] [address], [facility] [address] [address], . tel:[phone] Referring Provider: Onelia B[address] [facility], [place], [address]. tel:[phone], [id number], tel:[phone] [place] No Information 3 Yahir Clifford. [address] [place] [address], [place] [address], . tel:[phone] Referring Provider: Onelia [address], [place], [address]. tel:[phone], [id number], tel:[phone] [place] Cervicalgia 3 Yahir Clifford. [address] [place] [address], [facility] [address] [address], . tel:[phone] Referring Provider: Sylvain Solis, [address], [place], [address]. tel:[phone] Family History Family Member Type Diagnosis Age At Onset No Information Payers Payer name Insurance type Covered democrat ID Authormaribella marlin(s) Jack Kell SP [id number] Social History Type Description Quantity Date Captured Comments Sex Male Smoking Status No Information Chief Complaint And Reason For Visit No Information Reason For Referral Reason For Referral No Information Plan Of Treatment Date Type Action Status Goal Tobacco Cessation Counseling completed Goal Tobacco cessation counseling completed Goal Tobacco Cessation Counseling completed Referral Ordered: Weight management: Referral to physician timeframe: 1 Month. (related to Overweight) ordered Referral Ordered: PCP timeframe: 1 week. (related to Overweight) ordered History Of Present Illness Encounter Date Complaint History Of Prese nt Illness No Information Functional Status Date Functional Assessmen t No Information Instructions Date Instruction Additional Infor mation Prescribed activity/exercise edu cation Related to Overweight Dietary needs education Related to Overweight Dietary needs education Related to Overweight Dietary needs education Related to Overweight Giving encouragement to exercise Related to Overweight Giving encouragement to exercise Related to Overweight Giving encouragement to exercise Related to Overweight Prescribed activity/exercise edu cation Related to Overweight Prescribed activity/exercise edu cation Related to Overweight Giving encouragement to exercise Related to Overweight Assessments Type Assessment Date No Information Patient Care Teams Name Effective Dates (start - stop) Status Members No Information
--- OUTSIDE RECORDS SUMMARY | 2025-01-13 11:09 | XMS_ITS | Clinical Summary ---
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 Encourage patient to take gabapentin regularly rather than prn with increased dose to 200 mg twice daily. Advice given about 2019 novel coronavirus by pasquale aguila 11/09/2019 Assessment & Plan (11/09/2019 1:10 PM CDT): The full impact of autoimmune diseases and immunomodulatory medications on susceptibility and complications of coronavirus disease is not yet studied. 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 Feel free to reach out to us if you have additional questions after you review this information. You may review the current [place] [employer] Covid-19 clinical guidance for Patients with Rheumatic Diseases if you copy and paste the link below into your web browser: [email or web address] gianni-P dwkfvlv-kzhz-Uyceyqmvq-Diseases.pdf Of course, Humira should be placed on [...] 06/28/2017 Assessment & Plan (06/28/2017 3:13 PM SCHOOL GUARD): Discussed chronic pain management concerns in the [...] 01/05/2017 Assessment & Plan (04/21/2023 4:02 PM SCHOOL GUARD): Long-term use of high-risk medication requiring regular monitoring. Labs ordered, no s/s of med tox or infection. Encouraged to work with PCP to make sure all recommended cancer screens and vaccinations are complete. Avoid live-vaccines unless reviewed with statistics tutor first. Assessment & Plan (11/09/2019 1:11 PM [...] written. Assessment & Plan (04/15/2019 11:14 PM SCHOOL GUARD): Patient on immunosuppressive medications requiring periodic lab [...] written. Assessment & Plan (06/28/2017 3:10 PM SCHOOL GUARD): Patient on immunosuppressive medications requiring periodic lab [...] management. Assessment & Plan (06/28/2017 3:09 PM SCHOOL GUARD): An optimal BMI (body mass index) is between 20 and 25. Encourage weight loss. Each pound of weight lost unloads 3-4 pounds per square inch pressure from weight bearing joints. Diet and exercise are the keys to weight management. 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 Assessment & Plan (04/21/2023 4:01 PM SCHOOL GUARD): Stable/improved on simponi IV. Continue same. Labs [...] regimen. Assessment & Plan (04/15/2019 11:14 PM SCHOOL GUARD): Psoriatic arthritis follow up with continued clinically [...] side effects. Interrupted Humira for recent hospitalization [facility] with staph infection R knee following [...] controlled. Assessment & Plan (06/28/2017 3:15 PM SCHOOL GUARD): Psoriatic arthritis clinically stable on adalimumab ( [...] agrees with it. ACC# Date Time Exam [id number] Sep 16, 2016 11:19:00 39128 Spine Cervical 4 or 5 vws ACC# Date Time Exam [id number] Sep 16, 2016 11:19:00 [id number] Spine Cervical 4 or 5 vws EXAMINATION: [...] M.D. F on Sep 16 2016 12:14P [id number] Result History XR Spine Cervical Complete 4 or 5 Views (Order #[id number]) on 09/16/2016 - Order Result History Report Assessment & Plan (11/09/2019 1:14 PM CDT): XR Spine Cervical Complete 4 or 5 Views Status: Final result Study Result JACE KHAN M.D. F JOSE DU M.D.*FINAL REPORT* The radiology attending physician has personally reviewed this study, and has reviewed and/or edited this written report and agrees with it. ACC# Date Time Exam [id number] Sep 16, 2016 11:19:00 [id number] Spine Cervical 4 or 5 vws ACC# Date Time Exam [id number] Sep 16, 2016 11:19:00 72751 Spine Cervical 4 or 5 vws EXAMINATION: [...] M.D. F on Sep 16 2016 12:14P [id number] Result History XR Spine Cervical Complete 4 or 5 Views (Order #[id number]) on 09/16/2016 - Order Result History Report [...] on file Legal Sex Male 1:00 AM SCHOOL GUARD Gender Identity Not on file Sexual Orientation [...] 02/15/1978 Zoster Vaccine (1 of 2) 02/15/2010 Covid-19 Vaccine (3 - Pfizer risk series) 02/26/2021 01/29/2021, 12/26/2020 Depression Screening 12/09/2022 12/09/2021 Influenza Vaccine (#1) 2025 , 05/05/2022, 04/04/2020, Additional history exists DTaP/Tdap/Td Vaccine (3 - Td or Tdap) 02/12/2029 02/12/2019, 05/24/2010 Pneumococcal vaccine <65 Aged Out 03/09/2016, 06/2010 No longer eligible based on patient's age to complete this topic Medical Devices Implanted Type Area Speech Teacher Device Identifier Shelf Expiration Date Model / Serial / Lot [employer] Simplex P Full Dose Radiopaque Preblend Cement Bone Tobramycin 6197-9-010 - [id number] Implanted:Qty: 1 on 09/08/2023 at [facility] Right: Knee [employer] 10/21/2024 6197-9-010 / / [id number] [employer] Simplex P Full Dose Radiopaque Preblend Cement Bone Tobramycin 6197-9-010 - [id number] Implanted:Qty: 1 on 09/08/2023 at [facility] Right: Knee [employer] 10/21/2024 6197-9-010 / / [id number] [employer] Simplex P Full Dose Radiopaque Preblend Cement Bone Tobramycin 6197-9-010 - [id number] Implanted:Qty: 1 on 09/08/2023 at [facility] Right: Knee [employer] 10/21/2024 6197-9-010 / / [id number] [employer] Simplex P Full Dose Radiopaque Preblend Cement Bone Tobramycin 6197-9-010 - [id number] Implanted:Qty: 1 on 09/08/2023 at [facility] Right: Knee [employer] 12/21/2024 6197-9-010 / / [id number] [employer] Tibial Attune Cr Alpoly Sz 7 6mm [id number] - [id number] Implanted:Qty: 1 on 09/08/2023 at [facility] Right: Knee [employer] 07/21/2025 [id number] / / [id number] [employer] Simplex P Full Dose Radiopaque Preblend Cement Bone Tobramycin 6197-9-010 - [id number] Implanted:Qty: 1 on 09/08/2023 at [facility] Right: Knee [employer] 12/21/2024 6197-9-010 / / [id number] [employer] Stimulan Rapid Cure Kit Paste Psychology Professor 10cc 20cc Bone Void 620-010 - [id number] Implanted:Qty: 1 on 09/08/2023 at [facility] Right: Knee [employer] 03/23/2026 620-010 / / [id number] [employer] Attune Cemented Cruciate Retaining Knee Right 7 Component Femoral [id number] - [id number] Implanted:Qty: 1 on 09/08/2023 at [facility] Right: Knee [employer] 06/23/2033 [id number] / / [id number] Insurance AETNA MEDICARE GOLD AETNA MEDICARE GOLD AETNA MEDICARE GOLD WORKERS COMPENSATION GENERIC * Guarantor: [employer] Account Type Relation to Patient Date of Phone Billing Address Workers Comp Employer [address] [place] [address] WORKERS COMPENSATION GENERIC Advance Directives For more information, please contact: [phone] * Full Code (Latest Code Status on File) Date Activated Date Inactivated Comments 09/08/2023 12:12 PM 09/10/2023 7:12 PM Care Teams Asphalt Spreader Relationship Specialty Start Date End Date Tali Padgett MD PCP - General Family Practice 01/14/21
--- OUTSIDE RECORDS SUMMARY | 2025-01-13 11:10 | XMS_ITS | Clinical Summary ---
Author Organization [facility] Address [facility] [place] [address] Care Team Providers Care Freelance Data Entry Name Role Phone Unavailable Primary Care Provider [...]
[2025-01-13 12:14] LABS: Hematocrit 42.1 % (42.0-52.0); Hemoglobin 13.6 g/dL (14.0-18.0); Immature Granulocyte Percent A 0.9 % (0-0.5); Immature Platelet Fraction Pct 15.9 % (0.9-11.2); Lymphocytes Absolute Auto 1.47 K/mm3 (0.9-3.2); Mean Corpuscular HGB Conc 32.3 g/dl (32-36); Mean Corpuscular Hemoglobin 28.8 pg (26-34); Mean Corpuscular Volume 89.2 fl (80-100); Nucleated Red Blood Cells Absolute Auto 0.000 K/mm3 (0.0-0.012); Nucleated Red Blood Cells Perc 0.0 % (0.0-0.2); Platelet Count Result 101 k/mm3 (150-375); Red Blood Count 4.72 M/mm3 (4.6-6.20); White Blood Count 8.5 K/mm3 (4.5-10.0)
[2025-01-13 12:34] LABS: Alanine Aminotransferase 22 U/L (6-50); Albumin Level 4.2 g/dL (3.5-5.1); Alkaline Phosphatase 82 U/L (38-126); Anion Gap 8 mmol/L (4-12); Aspartate Amino Transferase 27 U/L (17-59); Bilirubin,Total 1.7 mg/dL (0.2-1.3); Blood Urea Nitrogen 18 mg/dL (9-20); CRP 1.0 mg/dL (<1.0); Calcium 9.1 mg/dL (8.4-10.2); Carbon Dioxide 26 mmol/L (22-30); Chloride 103 mmol/L (98-107); Estimated Glomerular Filt Rate > 60; Glucose 105 mg/dL (65-110); Potassium 4.5 mmol/L (3.4-5.0); Sodium 137 mmol/L (137-145); Total Protein 7.3 g/dL (6.3-8.2)
== END 2025-01-13 11:07 | disposition home or self-care (01) ==
PROVIDERS: PCP Family Medicine; Visit Provider Internal Medicine
DX: M25.50 Pain in unspecified joint (principal)
CPT/HCPCS: 36415; 80053; 85025; 85055; 85652; 86140